=== PATIENT | female | born 1945 | race Two or more races ===

== ENCOUNTER 2020-01-24 16:57 | Inpatient (IN) | payer MEDICARE ==
[~2020-01-24] VITALS: Ht 165.1 cm; Wt 89.0 kg
[2020-01-24 21:00] VITALS: BP 123/62
--- NOTE | 2020-01-24 21:15 | NUR ---
NURSE NOTES: Received patient report from WILBER Kingston. Patient arrived to unit from [facility] at 2100. Patient is AO x4. She shows no signs of distress or pain at the time. Per day shift nurse, patient got swabbed for COVID in [facility] but the results would not be ready until 24 hrs from then. Patient was was put on Contact/ droplet Isolation. Nursing circus train supervisor Ángel advised for patient to get a rapid swab. Patient was placed on athletic monitor. Belongings were noted. No phone and no money on the patient. Everything got sent with her son. Patient is on 2 L nasal canula. Patient is able to ambulate with a steady gait. IV is intact and patent. There are no signs of erythema, infiltration, or bleeding. Bed is in the lowest position, call light is within reach, side rails up x3. Will continue to monitor.
--- NOTE | 2020-01-24 21:50 | NUR ---
NURSE NOTES: Called Dr. Elias for admission orders. asked for patient to be re-swabbed with rapid COVID test. The rest of orders given.
--- NOTE | 2020-01-24 22:15 | NUR ---
NURSE NOTES: Patient came back positive for COVID. Dr. Elias was informed. He asked for patient to be put on Remdesevir. Pharmacy needs to be open so will have to wait until 0700 per Nursing Yield Engineer Ángel.
[2020-01-25] VITALS: BP 123/56
[2020-01-25] MEDS: cefTRIAXone 1 GM in D5W 55 ML IVPB SCH (00:10)
[2020-01-25] MEDS: dexAMETHasone 10mg/ml Inj IV SCH (00:10)
[2020-01-25] MEDS ORDERED: Albuterol 90mcg Inhaler 8gm INH PRN (02:15)
--- NOTE | 2020-01-25 03:25 | NUR ---
NURSE NOTES: Informed Dr. Elias patient had episode of bradycardia of 47 bpm. Patient was asleep, denies any pain or shortness of breath. No new orders given at the moment.
[2020-01-25 04:00] VITALS: BP 126/56
[2020-01-25] MEDS ORDERED: GABAPENTIN100 MG ORAL (06:57)
[2020-01-25] MEDS ORDERED: OMEPRAZOLE40 M1 ORAL (06:57)
[2020-01-25] MEDS ORDERED: AMLODIPINE-ATO1 EAC4 ORAL (06:57)
--- NOTE | 2020-01-25 07:39 | NUR ---
NURSE HAND-OFF REPORT: Important Events on Shift:[Patient was Sinus Erasmo. MD informed. No new orders given] Patient Status: [Full code] Diet: Cardiac[] Pending Orders: [Marielyir. Endorsed to WILBER Khoury to call pharmacy] Pending Results/Labs:[NA] Pending MD notification:[NA] Latest Vital Signs: Temperature 96.6 , Pulse 55 , B/P 126 /56 , Respiratory Rate 20 , O2 SAT 93 , , O2 Flow Rate 2.0 . Vital Sign Comment: [NA] EKG Rhythm: Sinus Bradycardia Rhythm change?: N MD Notified?: - MD Response: Latest Rowe Fall Score: 35 Fall Risk: Medium Risk Safety Measures: Call light Within Reach, Bed Alarm Zone 2, Side Rails Side Rails x2, Bed position Low and Locked. Fall Precautions: Yellow Socks Yellow Gown Patient Fall Education Report given to [WILBER Khoury].
[2020-01-25 08:00] VITALS: BP 125/47
--- NOTE | 2020-01-25 08:00 | NUR ---
NURSE NOTES: Pt awake/alert in bed, breathing easily on 2 lpm n/c, denies SOB and denies pain at this time. Vital signs stable with SR @ 60 on monitor. IV access RW, flushed with 10 ml NS and locked. CBC drawn on pt. Bed left in low position, side rails up x 2 and call light left near pt's hand.
[2020-01-25 08:04] LABS: ALANINE AMINOTRANSFERASE 39 U/L (12-78); ALBUMIN 2.4 G/DL (3.4-5.0); ALBUMIN/GLOBULIN RATIO 0.5 (1.0-2.7); ALKALINE PHOSPHATASE 63 U/L (46-116); ANION GAP 9 mmol/L (5-15); ASPARTATE AMINO TRANSFERASE 20 U/L (15-37); BILIRUBIN,TOTAL 0.3 MG/DL (0.2-1.0); BLOOD UREA NITROGEN 20 mg/dL (7-18); CALCIUM 8.8 MG/DL (8.5-10.1); CARBON DIOXIDE 27 MMOL/L (21-32); CHLORIDE 106 MMOL/L (98-107); CREATININE 0.8 MG/DL (0.55-1.30); PHOSPHORUS 3.1 MG/DL (2.5-4.9); POTASSIUM 4.3 MMOL/L (3.5-5.1); SODIUM 141 MMOL/L (136-145)
[2020-01-25] MEDS: Aspirin Baby 81mg ORAL SCH (09:25)
--- NOTE | 2020-01-25 09:47 | Diagnostic Imaging Report ---
EXAM: XR Chest, 1 View CLINICAL HISTORY: CP TECHNIQUE: Frontal view of the chest. COMPARISON: No relevant prior studies available. FINDINGS/IMPRESSION: Mild, peripheral patchy airspace opacity which should be correlated with CT scan if there is concern for viral pneumonitis. No focal or lobar infiltrate. No pneumothorax. No pleural effusion appeared Normal heart size. Calcified aorta.
[2020-01-25 10:04] LABS: APPEARANCE,URINE SLIGHTLY CLOUDY; BILIRUBIN, URINE NEGATIVE (NEGATIVE); COLOR,URINE PALE YELLOW; GLUCOSE, URINE (UA) NEGATIVE (NEGATIVE); KETONES,URINE NEGATIVE (NEGATIVE); LEUKOCYTE ESTERASE ,URINE 2+ (NEGATIVE); NITRITE,URINE NEGATIVE (NEGATIVE); PH,URINE 6 (4.5-8.0); PROTEIN,URINE NEGATIVE (NEGATIVE); UROBILINOGEN,URINE NORMAL MG/DL (0.0-1.0)
[2020-01-25 10:20] LABS: BASOPHILS % (AUTO) 1.9 % (0.0-2.0); HEMATOCRIT 42.7 % (37.0-47.0); LYMPHOCYTES % (AUTO) 10.7 % (20.0-45.0); MEAN CORPUSCULAR VOLUME 85 FL (80-99); MONOCYTES % (AUTO) 3.4 % (1.0-10.0); PLATELET COUNT 166 K/UL (150-450); RED CELL DISTRIBUTION WIDTH 13.5 % (11.6-14.8); WHITE BLOOD COUNT 8.9 K/UL (4.8-10.8)
--- NOTE | 2020-01-25 11:47 | Consultation ---
History of Present Illness General Date patient seen: Jan 25, 2020 Time patient seen: 10:00 Chief Complaint: SOB Referring physician: Dr Elias Reason for Consultation: COVID infection, pneumonia Present Illness HPI 74 years old female with past medical history of asthma, initially presented to [facility] with 2 weeks of intermittent shortness of breath, subjective fever and mild dry cough. Upon evaluation by her primary care provider she was found to be hypoxic and was advised to go to emergency room for further evaluation. Patient initially presented to [facility] and was found to be hypoxic 80 to 84% on room air; pulse oximetry improved to 94% on 2 L of oxygen via nasal cannula. Laboratory work-up revealed leukocytosis WBC 14.7, lactic acid 1.4 Stable electrolytes. Troponin 0.06, proBNP 15 . ECG -SR. Chest x-ray revealed patchy interstitial infiltrates. Patient was tested for rapid COVID-19, however the result is not available in the paperwork sent to us. Patient received empiric ceftriaxone and azithromycin , albuterol via [facility]I and transferred to [facility] due to insurance reasons. Upon arrival to [place] rapid COVID-19 was done and was positive. Patient admitted to telemetry floor to isolation room. Pulmonary consult was requested to assist in management of this patient. Patient reports shortness of breath, dry cough, occasional chest pain with deep breathing, sore throat, generalized weakness and fatigue. Labs this morning revealed no leukocytosis , stable hemoglobin and hematocrit. Glucose 180. Troponin negative. Stable LFT Allergies: Coded Allergies: No Known Allergies (Unverified , 01/24/20) Medication History Scheduled Amlodipine-Atorvastatin 10-20 Mg (Amlodipine-Atorvastatin 10-20 Mg), 1 TAB ORAL DAILY, (Reported) Gabapentin* (Gabapentin*), 100 MG ORAL THREE TIMES A DAY, (Reported) Omeprazole (Omeprazole), 40 MG ORAL DAILY, (Reported) Patient History History Provided By: Patient, Medical Record Healthcare decision maker Resuscitation status Full code Advanced Directive on File Past Medical/Surgical History Past Medical/Surgical History: (1) Asthma Review of Systems Constitutional: Reports: weakness - fatugye Eye: Reports: no symptoms ENT: Reports: other - sore throat Respiratory: Reports: see HPI, cough, shortness of breath Cardiovascular: Reports: see HPI Gastrointestinal: Reports: no symptoms Genitourinary: Reports: no symptoms Musculoskeletal: Reports: no symptoms Skin: Reports: no symptoms Psychiatric: Reports: no symptoms Neurological: Reports: no symptoms Endocrine: Reports: no symptoms Hematologic/Lymphatic: Reports: no symptoms Physical Exam General Appearance: no apparent distress, other - A/A/O x 4 predominantly Chinese speaking female in NAD Lines, tubes and drains: peripheral HEENT: normocephalic, atraumatic, anicteric, mucous membranes moist, pharynx normal, supple, other - O2 via NC Respiratory/Chest: chest wall non-tender, lungs clear, no accessory muscle use Cardiovascular/Chest: normal peripheral pulses, normal rate Abdomen: normal bowel sounds, non tender, soft Skin Exam: normal pigmentation, warm/dry 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, no motor/sensory deficits, alert, oriented x 3, responsive Musculoskeletal: normal muscle bulk Last 24 Hour Vital Signs Date Time Temp Pulse Resp B/P (MAP) Pulse Ox O2 Delivery O2 Flow Rate FiO2 01/25/20 09:25 66 125/47 01/25/20 08:00 70 01/25/20 08:00 97.9 66 20 125/47 (73) 94 01/25/20 04:00 55 01/25/20 04:00 96.6 60 20 126/56 (79) 93 01/25/20 01:12 Nasal Cannula 2.0 01/25/20 00:00 97.7 62 20 123/56 (78) 93 01/25/20 00:00 59 01/24/20 21:00 97.7 68 20 123/62 (82) 95 01/24/20 20:17 73 Intake and Output 01/24/20 01/25/20 19:00 07:00 Intake Total 600 ml Balance 600 ml Intake Oral 600 ml # Voids 1 Laboratory Tests Test 01/25/20 05:00 01/25/20 08:00 01/25/20 10:00 Sodium Level 141 MMOL/L (136-145) Potassium Level 4.3 MMOL/L (3.5-5.1) Chloride Level 106 MMOL/L (98-107) Carbon Dioxide Level 27 MMOL/L (21-32) Anion Gap 9 mmol/L (5-15) Blood Urea Nitrogen 20 mg/dL (7-18) H Creatinine 0.8 MG/DL (0.55-1.30) Estimat Glomerular Filtration Rate > 60 mL/min (>60) Glucose Level 180 MG/DL (74-106) H Calcium Level 8.8 MG/DL (8.5-10.1) Phosphorus Level 3.1 MG/DL (2.5-4.9) Magnesium Level 2.5 MG/DL (1.8-2.4) H Total Bilirubin 0.3 MG/DL (0.2-1.0) Aspartate Amino Transf (AST/SGOT) 20 U/L (15-37) Alanine Aminotransferase (ALT/SGPT) 39 U/L (12-78) Alkaline Phosphatase 63 U/L (46-116) Troponin I 0.000 ng/mL (0.000-0.056) Pro-B-Type Natriuretic Peptide 51 pg/mL (0-125) Total Protein 7.3 G/DL (6.4-8.2) Albumin 2.4 G/DL (3.4-5.0) L Globulin 4.9 g/dL Albumin/Globulin Ratio 0.5 (1.0-2.7) L Urine Color Pale yellow Urine Appearance Slightly cloudy Urine pH 6 (4.5-8.0) Urine Specific Valentine 1.020 (1.005-1.035) Urine Protein Negative (NEGATIVE) Urine Glucose (UA) Negative (NEGATIVE) Urine Ketones Negative (NEGATIVE) Urine Blood Negative (NEGATIVE) Urine Nitrite Negative (NEGATIVE) Urine Bilirubin Negative (NEGATIVE) Urine Urobilinogen Normal MG/DL (0.0-1.0) Urine Leukocyte Esterase 2+ (NEGATIVE) H Urine RBC 0-2 /HPF (0 - 2) Urine WBC 40-60 /HPF (0 - 2) H Urine Squamous Epithelial Cells Few /LPF (NONE/OCC) Urine Bacteria Few /HPF (NONE) White Blood Count 8.9 K/UL (4.8-10.8) Red Blood Count 5.00 M/UL (4.20-5.40) Hemoglobin 14.0 G/DL (12.0-16.0) Hematocrit 42.7 % (37.0-47.0) Mean Corpuscular Volume 85 FL (80-99) Mean Corpuscular Hemoglobin 28.0 PG (27.0-31.0) Mean Corpuscular Hemoglobin Concent 32.7 G/DL (32.0-36.0) Red Cell Distribution Width 13.5 % (11.6-14.8) Platelet Count 166 K/UL (150-450) Mean Platelet Volume 5.4 FL (6.5-10.1) L Neutrophils (%) (Auto) 84.0 % (45.0-75.0) H Lymphocytes (%) (Auto) 10.7 % (20.0-45.0) L Monocytes (%) (Auto) 3.4 % (1.0-10.0) Eosinophils (%) (Auto) 0.0 % (0.0-3.0) Basophils (%) (Auto) 1.9 % (0.0-2.0) Microbiology Date/Time Source Procedure Growth Status 01/24/20 22:00 Nasopharynx SARS-CoV-2 RdRp Gene Assay - Final Complete Height (Feet): 5 Height (Inches): 5.00 Weight (Pounds): 189 Medications Current Medications Medications (Trade) Dose Ordered Sig/Jaime Route PRN Reason Start Time Stop Time Status Last Admin Dose Admin Acetaminophen (Tylenol) 650 mg Q6H PRN ORAL For Headache 01/24/20 21:45 02/23/20 21:44 Albuterol Sulfate (Proventil MDI) 2 puff Q4H PRN INH Shortness of Breath 01/25/20 02:15 04/24/20 02:14 Amlodipine Besylate (Norvasc) 10 mg DAILY ORAL 01/25/20 09:00 02/24/20 08:59 01/25/20 09:25 Aspirin (ASA) 81 mg DAILY ORAL 01/25/20 09:00 03/10/20 08:59 01/25/20 09:25 Ceftriaxone Sodium 1 gm/ Dextrose 55 ml @ 110 mls/hr Q24H IVPB 01/25/20 00:00 02/01/20 00:00 01/25/20 00:10 Dexamethasone Sodium Phosphate (Decadron 10mg/ ml Inj) 6 mg Q24H IV 01/25/20 00:00 04/24/20 00:00 01/25/20 00:10 Heparin Sodium (Porcine) (Heparin 5000 units/ml) 5,000 units EVERY 8 HOURS SUBQ 01/25/20 14:00 03/10/20 13:59 Ondansetron HCl (Zofran) 4 mg Q4H PRN IVP Nausea & Vomiting 01/24/20 21:45 02/23/20 21:44 Pantoprazole (Protonix) 40 mg DAILY ORAL 01/25/20 09:00 02/24/20 08:59 01/25/20 09:25 Assessment/Plan Assessment/Plan: ASSESSMENT Acute hypoxemic respiratory failure- due to COVID infection COVID 19 PNA Asthma Hyperglycemia PLAN OF CARE tele isolation O2 titrate to keep sat above 92% Albuterol MDI IV steroids empiric antibiotics ceftriaxone and azithromycin f/up with CXR consider Remdesivir per ID check inflammatory markers to assess risk for cytokine storm DVT prophylaxis add vitamin C and zinc check HgbA1c ; may need SSI while on the steroids GI prophylaxis supportive care case discussed and evaluated by supervising physician Pepper Renner NP Jan 25, 2020 11:47
[2020-01-25 12:00] VITALS: BP 137/59
--- NOTE | 2020-01-25 12:54 | Infectious Diseases Prog Note ---
Subjective Allergies: Coded Allergies: No Known Allergies (Unverified , 01/24/20) Discussed w the pt : RDV is apoproved under EUA RIsk and benefits explained and she will be monitored for possible side effects pt agrees to the treatment plan DW pharm to start the Rx Objective Last 24 Hour Vital Signs Date Time Temp Pulse Resp B/P (MAP) Pulse Ox O2 Delivery O2 Flow Rate FiO2 01/25/20 09:25 66 125/47 01/25/20 08:00 70 01/25/20 08:00 97.9 66 20 125/47 (73) 94 01/25/20 04:00 55 01/25/20 04:00 96.6 60 20 126/56 (79) 93 01/25/20 01:12 Nasal Cannula 2.0 01/25/20 00:00 97.7 62 20 123/56 (78) 93 01/25/20 00:00 59 01/24/20 21:00 97.7 68 20 123/62 (82) 95 01/24/20 20:17 73 Height (Feet): 5 Height (Inches): 5.00 Weight (Pounds): 189 Microbiology Date/Time Source Procedure Growth Status 01/24/20 22:00 Nasopharynx SARS-CoV-2 RdRp Gene Assay - Final Complete Laboratory Tests Test 01/25/20 05:00 01/25/20 08:00 01/25/20 10:00 Sodium Level 141 MMOL/L (136-145) Potassium Level 4.3 MMOL/L (3.5-5.1) Chloride Level 106 MMOL/L (98-107) Carbon Dioxide Level 27 MMOL/L (21-32) Anion Gap 9 mmol/L (5-15) Blood Urea Nitrogen 20 mg/dL (7-18) H Creatinine 0.8 MG/DL (0.55-1.30) Estimat Glomerular Filtration Rate > 60 mL/min (>60) Glucose Level 180 MG/DL (74-106) H Calcium Level 8.8 MG/DL (8.5-10.1) Phosphorus Level 3.1 MG/DL (2.5-4.9) Magnesium Level 2.5 MG/DL (1.8-2.4) H Total Bilirubin 0.3 MG/DL (0.2-1.0) Aspartate Amino Transf (AST/SGOT) 20 U/L (15-37) Alanine Aminotransferase (ALT/SGPT) 39 U/L (12-78) Alkaline Phosphatase 63 U/L (46-116) Troponin I 0.000 ng/mL (0.000-0.056) Pro-B-Type Natriuretic Peptide 51 pg/mL (0-125) Total Protein 7.3 G/DL (6.4-8.2) Albumin 2.4 G/DL (3.4-5.0) L Globulin 4.9 g/dL Albumin/Globulin Ratio 0.5 (1.0-2.7) L Urine Color Pale yellow Urine Appearance Slightly cloudy Urine pH 6 (4.5-8.0) Urine Specific [place] 1.020 (1.005-1.035) Urine Protein Negative (NEGATIVE) Urine Glucose (UA) Negative (NEGATIVE) Urine Ketones Negative (NEGATIVE) Urine Blood Negative (NEGATIVE) Urine Nitrite Negative (NEGATIVE) Urine Bilirubin Negative (NEGATIVE) Urine Urobilinogen Normal MG/DL (0.0-1.0) Urine Leukocyte Esterase 2+ (NEGATIVE) H Urine RBC 0-2 /HPF (0 - 2) Urine WBC 40-60 /HPF (0 - 2) H Urine Squamous Epithelial Cells Few /LPF (NONE/OCC) Urine Bacteria Few /HPF (NONE) White Blood Count 8.9 K/UL (4.8-10.8) Red Blood Count 5.00 M/UL (4.20-5.40) Hemoglobin 14.0 G/DL (12.0-16.0) Hematocrit 42.7 % (37.0-47.0) Mean Corpuscular Volume 85 FL (80-99) Mean Corpuscular Hemoglobin 28.0 PG (27.0-31.0) Mean Corpuscular Hemoglobin Concent 32.7 G/DL (32.0-36.0) Red Cell Distribution Width 13.5 % (11.6-14.8) Platelet Count 166 K/UL (150-450) Mean Platelet Volume 5.4 FL (6.5-10.1) L Neutrophils (%) (Auto) 84.0 % (45.0-75.0) H Lymphocytes (%) (Auto) 10.7 % (20.0-45.0) L Monocytes (%) (Auto) 3.4 % (1.0-10.0) Eosinophils (%) (Auto) 0.0 % (0.0-3.0) Basophils (%) (Auto) 1.9 % (0.0-2.0) Current Medications Medications (Trade) Dose Ordered Sig/Jaime Route PRN Reason Start Time Stop Time Status Last Admin Dose Admin Acetaminophen (Tylenol) 650 mg Q6H PRN ORAL For Headache 01/24/20 21:45 02/23/20 21:44 Albuterol Sulfate (Proventil MDI) 2 puff Q4H PRN INH Shortness of Breath 01/25/20 02:15 04/24/20 02:14 Amlodipine Besylate (Norvasc) 10 mg DAILY ORAL 01/25/20 09:00 02/24/20 08:59 01/25/20 09:25 Ascorbic Acid (Vitamin C) 500 mg TWICE A DAY ORAL 01/25/20 18:00 02/24/20 17:59 Aspirin (ASA) 81 mg DAILY ORAL 01/25/20 09:00 03/10/20 08:59 01/25/20 09:25 Azithromycin 500 mg/Dextrose 275 ml @ 275 mls/hr Q24HRS IV 01/25/20 14:00 01/31/20 14:59 Ceftriaxone Sodium 1 gm/ Dextrose 55 ml @ 110 mls/hr Q24H IVPB 01/25/20 00:00 02/01/20 00:00 01/25/20 00:10 Dexamethasone Sodium Phosphate (Decadron 10mg/ ml Inj) 6 mg Q24H IV 01/25/20 00:00 04/24/20 00:00 01/25/20 00:10 Heparin Sodium (Porcine) (Heparin 5000 units/ml) 5,000 units EVERY 8 HOURS SUBQ 01/25/20 14:00 03/10/20 13:59 Pantoprazole (Protonix) 40 mg DAILY ORAL 01/25/20 09:00 02/24/20 08:59 01/25/20 09:25 Zinc Sulfate (Zinc Sulfate) 220 mg DAILY ORAL 01/26/20 09:00 04/25/20 08:59 Zinc Sulfate (Zinc Sulfate) 220 mg ONCE ORAL 01/25/20 14:00 01/25/20 15:00 Guillermo Lau MD Jan 25, 2020 12:54
[2020-01-25] MEDS ORDERED: Zinc Sulfate 220mg ORAL SCH (14:00)
[2020-01-25] MEDS: Azithromycin 500 MG in D5W 275 ML IV SCH (14:16)
[2020-01-25] MEDS: Heparin 5000 units/ml inj SUBQ SCH ×2 (14:17→21:21)
[2020-01-25 16:00] VITALS: BP 135/39
--- NOTE | 2020-01-25 16:43 | History & Physical ---
History and Physical History & Physicial Dictated for Int Med-DR Elias no. [id number]. Carlos Eduardo Storey MD Jan 25, 2020 16:43
--- NOTE | 2020-01-25 17:03 | NUR ---
CASE MANAGEMENT: INITIAL REVIEW 74YR OLD FEMALE BIBA TRANSFER FROM [place] CC:SOB SAT AT <89% ; FEVER COUGH; R/O COVID PMH: ASTHMA SI:HYPOXIA COVID-19 + PNA 97.7 73 20 123/62 95% ON 2L NC BUN 20 MG 2.5 IS:IV ROCEPHIN QD IV DECADRON QD IV ZITHROMAX QD HEPARIN SQ TID NORVASC PO QD PROTONIX PO QD ASA PO QD \: 3E MED SURG UNIT DCP: HOME WHEN STABLE PLAN: KEEP SAT ABOVE 92% CORRECT MG LEVEL ID CONSULT OXYGEN THERAPY
[2020-01-25] MEDS: Ascorbic Acid 500mg tab ORAL SCH (17:45)
[2020-01-25 20:00] VITALS: BP 141/62
--- NOTE | 2020-01-25 20:00 | NUR ---
NURSE NOTES: Received patient report from WILBER Khoury. Patient shows no signs of distress or pain at the time. Patient is AO x4. She states she is feeling better than yesterday. Patient is on 2L nasal canula saturating at 93%. She reports no respiratory distress. IV is intact and patent. There are no signs of erythema, infiltration, or bleeding at the time. Per air sampling and monitoring Afshin, patient was having PVC s on color television console monitor. I notified Dr. Elias and he ordered Mg, Phos in the morning. Will continue to monitor.
--- NOTE | 2020-01-25 23:59 | History and Physical Report ---
DATE OF ADMISSION: 01/24/2020 CHIEF COMPLAINT: Patient is a 74-year-old female, who presents with a chief complaint of shortness of breath. HISTORY OF PRESENT ILLNESS: Began two weeks prior to admission. Patient began to experience decreased taste and sense of smell. Patient then began to experience subjective fevers and chills. Patient then became short of breath. Patient initially presented to [facility] emergency room. Patient is transferred to [facility] for insurance purposes. Patient is admitted with shortness of breath to rule out COVID-19 pneumonia. REVIEW OF SYSTEMS: CONSTITUTIONAL: Patient denies weight loss or weight gain. Patient complains of subjective fevers and chills as above. HEENT: Patient complains of congestion. Patient denies throat pain or ear pain. CARDIOVASCULAR: Patient denies palpitations or chest pain. CHEST: Patient complains of shortness of breath as above. Patient complains of nonproductive cough. Patient denies wheezes. ABDOMEN: Patient denies nausea, vomiting, diarrhea, or constipation. GENITOURINARY: Patient denies dysuria or increased frequency of urination. NEUROMUSCULAR: Patient complains of loss of taste and smell sensation as above. PAST MEDICAL HISTORY: Significant for: 1. Asthma. 2. Hypertension. 3. Gastritis. 4. Arthritis. PAST SURGICAL HISTORY: Significant for cholecystectomy. CURRENT MEDICATIONS: 1. Amlodipine 10 mg 1 tablet p.o. daily. 2. Benazepril 20 mg p.o. daily. 3. Prilosec 20 mg p.o. daily. ALLERGIES: No known drug allergies. SOCIAL HISTORY: Patient is single and lives with her family. Patient denies tobacco or alcohol use. PHYSICAL EXAMINATION: VITAL SIGNS: Temperature 97.7, respirations 20, pulse 58, blood pressure 123/62. GENERAL: Patient is well-developed, well-nourished female, in no apparent distress. HEENT: Eyes, pupils are equal and responsive to light and accommodation. Extraocular movements are intact. NECK: Supple without lymphadenopathy. CHEST: Crackles heard in the bilateral bases. Otherwise, without wheezes. CARDIOVASCULAR: Regular rhythm and rate. S1, S2 normal without murmurs, rubs, or gallops. ABDOMEN: Soft, nontender, nondistended. Positive bowel sounds. No evidence of hepatosplenomegaly. Currently, no rebound or guarding noted. EXTREMITIES: Negative for clubbing, cyanosis, or edema. RECTAL/GENITAL: Not performed. NEUROLOGIC: Cranial nerves II through XII are grossly intact without focal deficits. Motor strength is 5/5 bilaterally. Deep tendon reflexes are 2+ plantar. Chest x-ray from [place] demonstrated bilateral interstitial infiltrates consistent with COVID-19 pneumonia. LABORATORY STUDIES: WBC 14.7, hemoglobin 14.8, hematocrit 45.6, platelets 192,000. Sodium 138, potassium 4.1, chloride 102, CO2 23, BUN 22, creatinine 0.96, glucose 180. COVID-19 rapid test at [place] was reported as positive. ASSESSMENT: This is a 74-year-old female. 1. COVID-19 positive. 2. Bilateral pneumonia. 3. Shortness of breath. 4. Hypoxia. 5. Asthma. 6. Hypertension. 7. Gastritis. 8. Arthritis. TREATMENT: 1. COVID-19 pneumonia. An Infectious Disease consultation has been obtained with Dr. Lau. Patient has been started on remdesivir. Patient has also been receiving albuterol nebulized q.4h. A Pulmonary consultation has been obtained with Dr. Saqib Obando. Follow recommendations of Infectious Disease and Pulmonary. 2. Hypertension. Continue amlodipine and benazepril as above. 3. Gastritis. Continue omeprazole as above. 4. Arthritis. Carlos Eduardo Storey M.D. DR: YAEL JOB#: [id number] CC:
[2020-01-26] VITALS: BP 141/68
[2020-01-26] MEDS: cefTRIAXone 1 GM in D5W 55 ML IVPB SCH ×2 (00:27→23:56)
[2020-01-26] MEDS: dexAMETHasone 10mg/ml Inj IV SCH ×2 (00:27→23:55)
[2020-01-26 04:00] VITALS: BP 133/54
[2020-01-26] MEDS: Heparin 5000 units/ml inj SUBQ SCH ×3 (05:48→21:57)
[2020-01-26 06:42] LABS: HEMATOCRIT 42.3 % (37.0-47.0); HEMOGLOBIN 13.7 G/DL (12.0-16.0); MEAN CORPUSCULAR VOLUME 86 FL (80-99); PLATELET COUNT 191 K/UL (150-450); RED BLOOD COUNT 4.94 M/UL (4.20-5.40); RED CELL DISTRIBUTION WIDTH 13.5 % (11.6-14.8); WHITE BLOOD COUNT 13.3 K/UL (4.8-10.8)
[2020-01-26 07:01] LABS: ANION GAP 10 mmol/L (5-15); BLOOD UREA NITROGEN 22 mg/dL (7-18); CALCIUM 8.6 MG/DL (8.5-10.1); CARBON DIOXIDE 24 MMOL/L (21-32); CHLORIDE 105 MMOL/L (98-107); CREATININE 0.9 MG/DL (0.55-1.30); POTASSIUM 4.2 MMOL/L (3.5-5.1); SODIUM 139 MMOL/L (136-145)
--- NOTE | 2020-01-26 07:22 | NUR ---
NURSE HAND-OFF REPORT: Important Events on Shift:[NA] Patient Status: [Full code] Diet: [Cardiac] Pending Orders: [Remdesevir] Pending Results/Labs:[NA] Pending MD notification:[NA] Latest Vital Signs: Temperature 97.0 , Pulse 48 , B/P 133 /54 , Respiratory Rate 20 , O2 SAT 93 , Nasal Cannula, O2 Flow Rate 2.0 . Vital Sign Comment: [NA] EKG Rhythm: Sinus Bradycardia Rhythm change?: N MD Notified?: - MD Response: Latest Rowe Fall Score: 35 Fall Risk: Medium Risk Safety Measures: Call light Within Reach, Bed Alarm Zone 2, Side Rails Side Rails x2, Bed position Low and Locked. Fall Precautions: Yellow Socks Yellow Gown Patient Fall Education Report given to [WILBER Champion].
--- NOTE | 2020-01-26 07:26 | NUR ---
NURSE NOTES: Received pt in bed, sleeping. On 2L/min. No s/s of distress/pain. IV on R wrist 20g noted, with SL. Side rails x 2. Bed in the lowest and locked. Call light within reach. Will continue to monitor
[2020-01-26 07:49] LABS: PHOSPHORUS 3.3 MG/DL (2.5-4.9)
[2020-01-26 08:00] VITALS: BP 138/57
[2020-01-26] MEDS: Ascorbic Acid 500mg tab ORAL SCH ×2 (08:32→16:55)
[2020-01-26] MEDS: Aspirin Baby 81mg ORAL SCH (08:32)
[2020-01-26] MEDS: Zinc Sulfate 220mg ORAL SCH (08:32)
--- NOTE | 2020-01-26 09:49 | NUR ---
NURSE NOTES: Notified dr. Storey for D-dimer 3.44 and awaiting for orders
--- NOTE | 2020-01-26 11:56 | Pulmonology Progress Note ---
Subjective ROS Limited/Unobtainable: No Interval Events: feeling better Allergies: Coded Allergies: No Known Allergies (Unverified , 01/24/20) Objective Last 24 Hour Vital Signs Date Time Temp Pulse Resp B/P (MAP) Pulse Ox O2 Delivery O2 Flow Rate FiO2 01/26/20 08:32 48 138/57 01/26/20 08:05 Nasal Cannula 2.0 01/26/20 08:00 97.2 59 18 138/57 (84) 94 01/26/20 08:00 48 01/26/20 04:00 97.0 60 20 133/54 (80) 93 01/26/20 04:00 48 01/26/20 00:00 47 01/26/20 00:00 97.5 54 20 141/68 (92) 93 01/25/20 21:00 Nasal Cannula 2.0 01/25/20 20:00 61 01/25/20 20:00 97.0 68 18 141/62 (88) 93 01/25/20 16:00 84 01/25/20 16:00 97.9 71 20 135/39 (71) 94 01/25/20 15:07 Nasal Cannula 2.0 01/25/20 12:00 62 01/25/20 12:00 97.5 63 20 137/59 (85) 95 Intake and Output 01/25/20 01/26/20 19:00 07:00 Intake Total 600 ml 530 ml Balance 600 ml 530 ml Intake Oral 600 ml 530 ml # Voids 5 2 General Appearance: WD/WN HEENT: normocephalic, atraumatic Respiratory: chest wall non-tender, lungs clear Cardiovascular: normal rate Abdomen: normal bowel sounds, soft, non tender, non distended Genitourinary: normal external genitalia Skin: no rash, no ulcers Neurologic: surveillance operator II-XII grossly normal Lymphatic: no neck adenopathy Microbiology Date/Time Source Procedure Growth Status 01/24/20 22:00 Nasopharynx SARS-CoV-2 RdRp Gene Assay - Final Complete 01/25/20 08:00 Urine,Clean Catch Urine Culture - Preliminary NO GROWTH Resulted Laboratory Tests 01/26/20 04:00: White Blood Count 13.3H, Red Blood Count 4.94, Hemoglobin 13.7, Hematocrit 42.3 , Mean Corpuscular Volume 86, Mean Corpuscular Hemoglobin 27.8, Mean Corpuscular Hemoglobin Concent 32.5, Red Cell Distribution Width 13.5, Platelet Count 191, Mean Platelet Volume 5.3L, Neutrophils (%) (Auto) , Lymphocytes (%) ( Auto) , Monocytes (%) (Auto) , Eosinophils (%) (Auto) , Basophils (%) (Auto) , Differential Total Cells Counted 100, Neutrophils % (Manual) 90H, Lymphocytes % (Manual) 9L, Monocytes % (Manual) 1, Eosinophils % (Manual) 0, Basophils % ( Manual) 0, Band Neutrophils 0, Platelet Estimate Adequate, Platelet Morphology Normal, Red Blood Cell Morphology Normal, D-Dimer 3.44H, Sodium Level 139, Potassium Level 4.2, Chloride Level 105, Carbon Dioxide Level 24, Anion Gap 10, Blood Urea Nitrogen 22H, Creatinine 0.9, Estimat Glomerular Filtration Rate > 60 , Glucose Level 198H, Calcium Level 8.6, Phosphorus Level 3.3, Magnesium Level 2.3, Ferritin 248, Lactate Dehydrogenase 290H, C-Reactive Protein, Quantitative 3.0H Current Medications Medications (Trade) Dose Ordered Sig/Jaime Route PRN Reason Start Time Stop Time Status Last Admin Dose Admin Acetaminophen (Tylenol) 650 mg Q6H PRN ORAL For Headache 01/24/20 21:45 02/23/20 21:44 Albuterol Sulfate (Proventil MDI) 2 puff Q4H PRN INH Shortness of Breath 01/25/20 02:15 04/24/20 02:14 Amlodipine Besylate (Norvasc) 10 mg DAILY ORAL 01/25/20 09:00 02/24/20 08:59 01/26/20 08:32 Ascorbic Acid (Vitamin C) 500 mg TWICE A DAY ORAL 01/25/20 18:00 02/24/20 17:59 01/26/20 08:32 Aspirin (ASA) 81 mg DAILY ORAL 01/25/20 09:00 03/10/20 08:59 01/26/20 08:32 Azithromycin 500 mg/Dextrose 275 ml @ 275 mls/hr Q24HRS IV 01/25/20 14:00 01/31/20 14:59 01/25/20 14:16 Ceftriaxone Sodium 1 gm/ Dextrose 55 ml @ 110 mls/hr Q24H IVPB 01/25/20 00:00 02/01/20 00:00 01/26/20 00:27 Dexamethasone Sodium Phosphate (Decadron 10mg/ ml Inj) 6 mg Q24H IV 01/27/20 00:00 02/03/20 00:01 Heparin Sodium (Porcine) (Heparin 5000 units/ml) 5,000 units EVERY 8 HOURS SUBQ 01/25/20 14:00 03/10/20 13:59 01/26/20 05:48 Pantoprazole (Protonix) 40 mg DAILY ORAL 01/25/20 09:00 02/24/20 08:59 01/26/20 08:32 Zinc Sulfate (Zinc Sulfate) 220 mg DAILY ORAL 01/26/20 09:00 04/25/20 08:59 01/26/20 08:32 Assessment/Plan Problems: (1) History of asthma (2) 2019 novel coronavirus disease (COVID-19) (3) Acute bronchitis Assessment/Plan check sputum respiratory treatment titrate fio2 to sat of 92% f/u ID recommendations dvt prophylaxis Saqib Obando MD Jan 26, 2020 11:56
[2020-01-26 12:00] VITALS: BP 136/65
[2020-01-26] MEDS: Azithromycin 500 MG in D5W 275 ML IV SCH (13:02)
--- NOTE | 2020-01-26 15:37 | NUR ---
CASE MANAGEMENT: 01/26/20 SEE INTERQUAL...CRITERIA MET
--- NOTE | 2020-01-26 15:37 | NUR ---
INSURANCE CONTACT INFORMATION NOT YET IN B/AR WILL FAX ONCE INFO IS AVAILABLE
[2020-01-26 16:00] VITALS: BP 139/63
--- NOTE | 2020-01-26 16:52 | Consultation ---
History of Present Illness General Date patient seen: Jan 26, 2020 Referring physician: Dr Elias Reason for Consultation: COVID infection, pneumonia Present Illness HPI 74 y/o F with hx of Asthma, HTN, gastritis, sp cholecystectomy, arthritis was transferred from [place] to [facility] on 01/24/20 with 2 weeks of SOB, subjective fever , generalized weakness, decreased sense of taste and sense, fatigue, sore throat , pleuritic chest pain and mild dry cough; patient was hypoxic to 80-84% at RA at [facility] and improved to 945 at [facility]. Upon admission, Wbc 14.7 and lactic acid 1.4. rapid COVID PCR +. Denied n/v/d, dysuria. Allergies: Coded Allergies: No Known Allergies (Unverified , 01/24/20) Medication History Scheduled Amlodipine-Atorvastatin 10-20 Mg (Amlodipine-Atorvastatin 10-20 Mg), 1 TAB ORAL DAILY, (Reported) Gabapentin* (Gabapentin*), 100 MG ORAL THREE TIMES A DAY, (Reported) Omeprazole (Omeprazole), 40 MG ORAL DAILY, (Reported) Patient History Healthcare decision maker Resuscitation status Advanced Directive on File Patient History Narrative Pmhx: as above Shx: Patient is single and lives with her family. Patient denies tobacco or alcohol use. Fhx: non contributory Review of Systems All Other Systems: negative except mentioned in HPI Physical Exam Physical Exam Narrative GENERAL: Patient is well-developed, well-nourished female, in no apparent distress. HEENT: Eyes, pupils are equal and responsive to light and accommodation. Extraocular movements are intact. NECK: Supple without lymphadenopathy. CHEST: Crackles heard in the bilateral bases. Otherwise, without wheezes. CARDIOVASCULAR: Regular rhythm and rate. S1, S2 normal without murmurs, rubs, or gallops. ABDOMEN: Soft, nontender, nondistended. Positive bowel sounds. No evidence of hepatosplenomegaly. Currently, no rebound or guarding noted. EXTREMITIES: Negative for clubbing, cyanosis, or edema. Last 24 Hour Vital Signs Date Time Temp Pulse Resp B/P (MAP) Pulse Ox O2 Delivery O2 Flow Rate FiO2 01/26/20 12:00 97.0 65 20 136/65 (88) 96 01/26/20 12:00 58 01/26/20 08:32 48 138/57 01/26/20 08:05 Nasal Cannula 2.0 01/26/20 08:00 97.2 59 18 138/57 (84) 94 01/26/20 08:00 48 01/26/20 04:00 97.0 60 20 133/54 (80) 93 01/26/20 04:00 48 01/26/20 00:00 47 01/26/20 00:00 97.5 54 20 141/68 (92) 93 01/25/20 21:00 Nasal Cannula 2.0 01/25/20 20:00 61 01/25/20 20:00 97.0 68 18 141/62 (88) 93 Intake and Output 01/25/20 01/26/20 19:00 07:00 Intake Total 600 ml 530 ml Balance 600 ml 530 ml Intake Oral 600 ml 530 ml # Voids 5 2 Laboratory Tests Test 01/26/20 04:00 White Blood Count 13.3 K/UL (4.8-10.8) H Red Blood Count 4.94 M/UL (4.20-5.40) Hemoglobin 13.7 G/DL (12.0-16.0) Hematocrit 42.3 % (37.0-47.0) Mean Corpuscular Volume 86 FL (80-99) Mean Corpuscular Hemoglobin 27.8 PG (27.0-31.0) Mean Corpuscular Hemoglobin Concent 32.5 G/DL (32.0-36.0) Red Cell Distribution Width 13.5 % (11.6-14.8) Platelet Count 191 K/UL (150-450) Mean Platelet Volume 5.3 FL (6.5-10.1) L Neutrophils (%) (Auto) % (45.0-75.0) Lymphocytes (%) (Auto) % (20.0-45.0) Monocytes (%) (Auto) % (1.0-10.0) Eosinophils (%) (Auto) % (0.0-3.0) Basophils (%) (Auto) % (0.0-2.0) Differential Total Cells Counted 100 Neutrophils % (Manual) 90 % (45-75) H Lymphocytes % (Manual) 9 % (20-45) L Monocytes % (Manual) 1 % (1-10) Eosinophils % (Manual) 0 % (0-3) Basophils % (Manual) 0 % (0-2) Band Neutrophils 0 % (0-8) Platelet Estimate Adequate Platelet Morphology Normal Red Blood Cell Morphology Normal D-Dimer 3.44 mg/L FEU (0.00-0.49) H Sodium Level 139 MMOL/L (136-145) Potassium Level 4.2 MMOL/L (3.5-5.1) Chloride Level 105 MMOL/L (98-107) Carbon Dioxide Level 24 MMOL/L (21-32) Anion Gap 10 mmol/L (5-15) Blood Urea Nitrogen 22 mg/dL (7-18) H Creatinine 0.9 MG/DL (0.55-1.30) Estimat Glomerular Filtration Rate > 60 mL/min (>60) Glucose Level 198 MG/DL (74-106) H Calcium Level 8.6 MG/DL (8.5-10.1) Phosphorus Level 3.3 MG/DL (2.5-4.9) Magnesium Level 2.3 MG/DL (1.8-2.4) Ferritin 248 NG/ML (8-388) Lactate Dehydrogenase 290 U/L (81-234) H C-Reactive Protein, Quantitative 3.0 mg/dL (0.00-0.90) H Height (Feet): 5 Height (Inches): 5.00 Weight (Pounds): 186 Medications Current Medications Medications (Trade) Dose Ordered Sig/Jaime Route PRN Reason Start Time Stop Time Status Last Admin Dose Admin Acetaminophen (Tylenol) 650 mg Q6H PRN ORAL For Headache 01/24/20 21:45 02/23/20 21:44 Albuterol Sulfate (Proventil MDI) 2 puff Q4H PRN INH Shortness of Breath 01/25/20 02:15 04/24/20 02:14 Amlodipine Besylate (Norvasc) 10 mg DAILY ORAL 01/25/20 09:00 02/24/20 08:59 01/26/20 08:32 Ascorbic Acid (Vitamin C) 500 mg TWICE A DAY ORAL 01/25/20 18:00 02/24/20 17:59 01/26/20 08:32 Aspirin (ASA) 81 mg DAILY ORAL 01/25/20 09:00 03/10/20 08:59 01/26/20 08:32 Azithromycin 500 mg/Dextrose 275 ml @ 275 mls/hr Q24HRS IV 01/25/20 14:00 01/31/20 14:59 01/26/20 13:02 Ceftriaxone Sodium 1 gm/ Dextrose 55 ml @ 110 mls/hr Q24H IVPB 01/25/20 00:00 02/01/20 00:00 01/26/20 00:27 Dexamethasone Sodium Phosphate (Decadron 10mg/ ml Inj) 6 mg Q24H IV 01/27/20 00:00 02/03/20 00:01 Heparin Sodium (Porcine) (Heparin 5000 units/ml) 5,000 units EVERY 8 HOURS SUBQ 01/25/20 14:00 03/10/20 13:59 01/26/20 13:03 Pantoprazole (Protonix) 40 mg DAILY ORAL 01/25/20 09:00 02/24/20 08:59 01/26/20 08:32 Zinc Sulfate (Zinc Sulfate) 220 mg DAILY ORAL 01/26/20 09:00 04/25/20 08:59 01/26/20 08:32 Assessment/Plan Assessment/Plan: Abx: Ceftriaxone 01/24- Azithromycin 01/24- Assessment: COVID19 Pneumonia Acute hypoxic resp failure- on 2l NC -01/25 LDH 290, ferritin 248m CRP 3.0, D-dimer 3.34 -01/24 CXR: Mild, peripheral patchy airspace opacity which should be correlated with CT scan if there is concern for viral pneumonitis.No focal or lobar infiltrate. No pneumothorax. No pleural effusion appeared -01/23 rapid COVID PCR + Afebrile Leukocytosis (on steroids) -u/a wbc 40-60, nit neg, leuk +2; ucx NTD Asthma HTN gastritis sp cholecystectomy arthritis Plan: -Continue Ceftriaxone and Azithromycin #2 -Decadron #2 -Requested remdesevir- however was denied by [facility] COVID task force committee per current protocol -f/u cx -Monitor CBC/CMP, temperatures -COVID19 isolation Thank you for this consultation. Will continue to follow along with you. Discussed with Nevaeh Goldman M.D. Jan 26, 2020 16:52
--- NOTE | 2020-01-26 19:04 | NUR ---
NURSE HAND-OFF REPORT: Important Events on Shift: n/a Patient Status: n/a Diet: Cardiac Pending Orders: n/a Pending Results/Labs: n/a Pending MD notification: n/a Latest Vital Signs: Temperature 97.7 , Pulse 67 , B/P 139 /63 , Respiratory Rate 18 , O2 SAT 95 , Nasal Cannula, O2 Flow Rate 2.0 . Vital Sign Comment: HR goes down to 48 when patient is sleeping EKG Rhythm: Sinus Rhythm Rhythm change?: N MD Notified?: - MD Response: Latest Rowe Fall Score: 35 Fall Risk: Medium Risk Safety Measures: Call light Within Reach, Bed Alarm Zone 2, Side Rails Side Rails x2, Bed position Low and Locked. Fall Precautions: Yellow Socks Yellow Gown Patient Fall Education Report given to WILBER De Oliveira.
--- NOTE | 2020-01-26 19:05 | NUR ---
NURSE NOTES: RECEIVED REPORT FROM WILBER MOTT. AAOX4, VERBALLY RESPONSIVE IN [place]DONES[place], ABLE TO MAKE NEEDS KNOWN. NO COMPLAINTS OF PAIN OR DISCOMFORT AT THIS TIME. BREATHING EVEN AND UNLABORED ON 2LPM VIA NC, NO S/SX OF DISTRESS NOTED. IV SITE ON RIGHT WRIST PATENT, INTACT, ASYMPTOMATIC, SALINE-LOCKED. FALL PRECAUTIONS IN PLACE. CONTACT AND DROPLET PRECAUTIONS IMPLEMENTED. BED LOCKED AND IN LOWEST POSITION, SIDERAILS UP X 2. CALL LIGHT WITHIN REACH, WILL CONTINUE TO MONITOR FOR ANY CHANGES.
--- NOTE | 2020-01-26 19:20 | Internal Med Progress Note ---
Subjective Date of Service: Jan 26, 2020 Physician Name Carlos Eduardo Storey Attending Physician Leroy Elias MD Current Medications Medications (Trade) Dose Ordered Sig/Jaime Route PRN Reason Start Time Stop Time Status Last Admin Dose Admin Acetaminophen (Tylenol) 650 mg Q6H PRN ORAL For Headache 01/24/20 21:45 02/23/20 21:44 Albuterol Sulfate (Proventil MDI) 2 puff Q4H PRN INH Shortness of Breath 01/25/20 02:15 04/24/20 02:14 Amlodipine Besylate (Norvasc) 10 mg DAILY ORAL 01/25/20 09:00 02/24/20 08:59 01/26/20 08:32 Ascorbic Acid (Vitamin C) 500 mg TWICE A DAY ORAL 01/25/20 18:00 02/24/20 17:59 01/26/20 16:55 Aspirin (ASA) 81 mg DAILY ORAL 01/25/20 09:00 03/10/20 08:59 01/26/20 08:32 Azithromycin 500 mg/Dextrose 275 ml @ 275 mls/hr Q24HRS IV 01/25/20 14:00 01/31/20 14:59 01/26/20 13:02 Ceftriaxone Sodium 1 gm/ Dextrose 55 ml @ 110 mls/hr Q24H IVPB 01/25/20 00:00 02/01/20 00:00 01/26/20 00:27 Dexamethasone Sodium Phosphate (Decadron 10mg/ ml Inj) 6 mg Q24H IV 01/27/20 00:00 02/03/20 00:01 Heparin Sodium (Porcine) (Heparin 5000 units/ml) 5,000 units EVERY 8 HOURS SUBQ 01/25/20 14:00 03/10/20 13:59 01/26/20 13:03 Pantoprazole (Protonix) 40 mg DAILY ORAL 01/25/20 09:00 02/24/20 08:59 01/26/20 08:32 Zinc Sulfate (Zinc Sulfate) 220 mg DAILY ORAL 01/26/20 09:00 04/25/20 08:59 01/26/20 08:32 Allergies: Coded Allergies: No Known Allergies (Unverified , 01/24/20) ROS Limited/Unobtainable: No Constitutional: Reports: no symptoms HEENT: Reports: no symptoms Cardiovascular: Reports: no symptoms Respiratory: Reports: shortness of breath Gastrointestinal/Abdominal: Reports: no symptoms Genitourinary: Reports: no symptoms Neurologic/Psychiatric: Reports: no symptoms Subjective 74 YO F admitted with shortness of breath, now COVID 19 pneumonia. Cover for Int ihsan-Dr Elias Objective Last Vital Signs Date Time Temp Pulse Resp B/P (MAP) Pulse Ox O2 Delivery O2 Flow Rate FiO2 01/26/20 16:00 97.7 62 18 139/63 (88) 95 01/26/20 08:05 Nasal Cannula 2.0 Laboratory Tests Test 01/26/20 04:00 White Blood Count 13.3 K/UL (4.8-10.8) H Red Blood Count 4.94 M/UL (4.20-5.40) Hemoglobin 13.7 G/DL (12.0-16.0) Hematocrit 42.3 % (37.0-47.0) Mean Corpuscular Volume 86 FL (80-99) Mean Corpuscular Hemoglobin 27.8 PG (27.0-31.0) Mean Corpuscular Hemoglobin Concent 32.5 G/DL (32.0-36.0) Red Cell Distribution Width 13.5 % (11.6-14.8) Platelet Count 191 K/UL (150-450) Mean Platelet Volume 5.3 FL (6.5-10.1) L Neutrophils (%) (Auto) % (45.0-75.0) Lymphocytes (%) (Auto) % (20.0-45.0) Monocytes (%) (Auto) % (1.0-10.0) Eosinophils (%) (Auto) % (0.0-3.0) Basophils (%) (Auto) % (0.0-2.0) Differential Total Cells Counted 100 Neutrophils % (Manual) 90 % (45-75) H Lymphocytes % (Manual) 9 % (20-45) L Monocytes % (Manual) 1 % (1-10) Eosinophils % (Manual) 0 % (0-3) Basophils % (Manual) 0 % (0-2) Band Neutrophils 0 % (0-8) Platelet Estimate Adequate Platelet Morphology Normal Red Blood Cell Morphology Normal D-Dimer 3.44 mg/L FEU (0.00-0.49) H Sodium Level 139 MMOL/L (136-145) Potassium Level 4.2 MMOL/L (3.5-5.1) Chloride Level 105 MMOL/L (98-107) Carbon Dioxide Level 24 MMOL/L (21-32) Anion Gap 10 mmol/L (5-15) Blood Urea Nitrogen 22 mg/dL (7-18) H Creatinine 0.9 MG/DL (0.55-1.30) Estimat Glomerular Filtration Rate > 60 mL/min (>60) Glucose Level 198 MG/DL (74-106) H Calcium Level 8.6 MG/DL (8.5-10.1) Phosphorus Level 3.3 MG/DL (2.5-4.9) Magnesium Level 2.3 MG/DL (1.8-2.4) Ferritin 248 NG/ML (8-388) Lactate Dehydrogenase 290 U/L (81-234) H C-Reactive Protein, Quantitative 3.0 mg/dL (0.00-0.90) H Microbiology Date/Time Source Procedure Growth Status 01/24/20 22:00 Nasopharynx SARS-CoV-2 RdRp Gene Assay - Final Complete 01/25/20 08:00 Urine,Clean Catch Urine Culture - Preliminary NO GROWTH Resulted Intake and Output 01/25/20 01/26/20 19:00 07:00 Intake Total 600 ml 530 ml Balance 600 ml 530 ml Intake Oral 600 ml 530 ml # Voids 5 2 Objective PHYSICAL EXAMINATION: GENERAL: Patient is well-developed, well-nourished female, in no apparent distress. HEENT: Eyes, pupils are equal and responsive to light and accommodation. Extraocular movements are intact. NECK: Supple without lymphadenopathy. CHEST: Crackles heard in the bilateral bases. Otherwise, without wheezes. CARDIOVASCULAR: Regular rhythm and rate. S1, S2 normal without murmurs, rubs, or gallops. ABDOMEN: Soft, nontender, nondistended. Positive bowel sounds. No evidence of hepatosplenomegaly. Currently, no rebound or guarding noted. EXTREMITIES: Negative for clubbing, cyanosis, or edema. RECTAL/GENITAL: Not performed. NEUROLOGIC: Cranial nerves II through XII are grossly intact without focal deficits. Motor strength is 5/5 bilaterally. Deep tendon reflexes are 2+ plantar. Assessment/Plan Assessment/Plan ASSESSMENT: This is a 74-year-old female. 1. COVID-19 positive. 2. Bilateral pneumonia. 3. Shortness of breath. 4. Hypoxia. 5. Asthma. 6. Hypertension. 7. Gastritis. 8. Arthritis. TREATMENT: 1. COVID-19 pneumonia. An Infectious Disease consultation has been obtained with Dr. Lau. Patient has been started on remdesivir. Patient has also been receiving albuterol nebulized q.4h. A Pulmonary consultation has been obtained with Dr. Saqib Obando. Follow recommendations of Infectious Disease and Pulmonary. 2. Hypertension. Continue amlodipine and benazepril as above. 3. Gastritis. Continue omeprazole as above. 4. Arthritis. Carlos Eduardo Storey MD Jan 26, 2020 19:20
[2020-01-26 20:00] VITALS: BP 120/61
[2020-01-27] VITALS: BP 139/54
[2020-01-27 04:00] VITALS: BP 108/51
[2020-01-27] MEDS: Heparin 5000 units/ml inj SUBQ SCH ×3 (05:34→22:20)
--- NOTE | 2020-01-27 05:39 | NUR ---
NURSE NOTES: BLOOD DRAWN AND TAKEN DOWN TO LAB.
[2020-01-27 06:16] LABS: HEMATOCRIT 41.8 % (37.0-47.0); HEMOGLOBIN 13.8 G/DL (12.0-16.0); MEAN CORPUSCULAR VOLUME 86 FL (80-99); PLATELET COUNT 232 K/UL (150-450); RED BLOOD COUNT 4.87 M/UL (4.20-5.40); RED CELL DISTRIBUTION WIDTH 13.3 % (11.6-14.8); WHITE BLOOD COUNT 11.3 K/UL (4.8-10.8)
--- NOTE | 2020-01-27 07:31 | NUR ---
NURSE NOTES: Received pt in bed, sleeping. RA. No s/s of distress/pain. IV on R wrist 20g noted, with SL. Side rails x 2. Bed in the lowest and locked. Call light within reach. Will continue to monitor
--- NOTE | 2020-01-27 07:35 | NUR ---
NURSE HAND-OFF REPORT: Important Events on Shift: N/A Patient Status: STABLE Diet: CARDIAC Pending Orders: N/A Pending Results/Labs: 9 AM LABS Pending MD notification: N/A Latest Vital Signs: Temperature 97.7 , Pulse 68 , B/P 108 /51 , Respiratory Rate 18 , O2 SAT 94 , Nasal Cannula, O2 Flow Rate 2.0 . Vital Sign Comment: STABLE EKG Rhythm: Sinus Bradycardia Rhythm change?: N MD Notified?: N - MD Response: Latest Rowe Fall Score: 35 Fall Risk: Medium Risk Safety Measures: Call light Within Reach, Bed Alarm Zone 2, Side Rails Side Rails x2, Bed position Low and Locked. Fall Precautions: Yellow Socks Yellow Gown Patient Fall Education Report given to WILBER MOTT.
[2020-01-27 07:55] LABS: ALANINE AMINOTRANSFERASE 37 U/L (12-78); ALBUMIN 2.2 G/DL (3.4-5.0); ALBUMIN/GLOBULIN RATIO 0.5 (1.0-2.7); ALKALINE PHOSPHATASE 63 U/L (46-116); ANION GAP 13 mmol/L (5-15); ASPARTATE AMINO TRANSFERASE 25 U/L (15-37); BILIRUBIN,TOTAL < 0.1 MG/DL (0.2-1.0); BLOOD UREA NITROGEN 22 mg/dL (7-18); CALCIUM 8.4 MG/DL (8.5-10.1); CARBON DIOXIDE 22 MMOL/L (21-32); CHLORIDE 103 MMOL/L (98-107); CREATININE 0.9 MG/DL (0.55-1.30); FERRITIN 210 NG/ML (8-388); PHOSPHORUS 3.3 MG/DL (2.5-4.9); POTASSIUM 4.6 MMOL/L (3.5-5.1); SODIUM 138 MMOL/L (136-145)
[2020-01-27 08:00] VITALS: BP 130/65
--- NOTE | 2020-01-27 08:15 | NUR ---
INSURANCE CLINCALS AND INTERQUAL FAXED TO [facility] T:[phone] F: [phone] REF#[id number] [phone]
[2020-01-27] MEDS: Zinc Sulfate 220mg ORAL SCH (08:42)
[2020-01-27] MEDS: Aspirin Baby 81mg ORAL SCH (08:42)
[2020-01-27] MEDS: Ascorbic Acid 500mg tab ORAL SCH ×2 (08:42→17:13)
--- NOTE | 2020-01-27 11:47 | Pulmonology Progress Note ---
Subjective Interval Events: feeling better Allergies: Coded Allergies: No Known Allergies (Unverified , 01/24/20) Objective Last 24 Hour Vital Signs Date Time Temp Pulse Resp B/P (MAP) Pulse Ox O2 Delivery O2 Flow Rate FiO2 01/27/20 08:42 58 130/65 01/27/20 08:21 Room Air 01/27/20 08:00 97.7 58 18 130/65 (86) 93 01/27/20 08:00 58 01/27/20 04:00 97.7 68 18 108/51 (70) 94 01/27/20 04:00 51 01/27/20 00:00 97.5 52 20 139/54 (82) 95 01/27/20 00:00 48 01/26/20 21:00 Nasal Cannula 2.0 01/26/20 20:00 98.1 55 18 120/61 (80) 95 01/26/20 20:00 59 01/26/20 16:00 97.7 62 18 139/63 (88) 95 01/26/20 16:00 67 01/26/20 12:00 97.0 65 20 136/65 (88) 96 01/26/20 12:00 58 Intake and Output 01/26/20 01/27/20 19:00 07:00 Intake Total 500 ml 360 ml Balance 500 ml 360 ml Intake Oral 500 ml 360 ml # Voids 2 2 General Appearance: WD/WN HEENT: normocephalic, atraumatic Respiratory: chest wall non-tender, lungs clear, expiratory wheezing Cardiovascular: normal rate Abdomen: normal bowel sounds, soft, non tender, non distended Genitourinary: normal external genitalia Skin: no rash, no ulcers Neurologic: computer repairer II-XII grossly normal Lymphatic: no neck adenopathy Microbiology Date/Time Source Procedure Growth Status 01/25/20 05:00 Blood Blood Culture - Preliminary NO GROWTH AFTER 24 HOURS Resulted 01/24/20 22:00 Nasopharynx SARS-CoV-2 RdRp Gene Assay - Final Complete 01/25/20 08:00 Urine,Clean Catch Urine Culture - Preliminary Mixed Gram Positive Organism Resulted Laboratory Tests 01/27/20 05:30: White Blood Count 11.3H, Red Blood Count 4.87, Hemoglobin 13.8, Hematocrit 41.8 , Mean Corpuscular Volume 86, Mean Corpuscular Hemoglobin 28.3, Mean Corpuscular Hemoglobin Concent 33.0, Red Cell Distribution Width 13.3, Platelet Count 232, Mean Platelet Volume 5.3L, Neutrophils (%) (Auto) , Lymphocytes (%) ( Auto) , Monocytes (%) (Auto) , Eosinophils (%) (Auto) , Basophils (%) (Auto) , Differential Total Cells Counted 100, Neutrophils % (Manual) 88H, Lymphocytes % (Manual) 12L, Monocytes % (Manual) 0L, Eosinophils % (Manual) 0, Basophils % ( Manual) 0, Band Neutrophils 0, Platelet Estimate Adequate, Platelet Morphology Normal, Red Blood Cell Morphology Normal, Erythrocyte Sedimentation Rate 36H, Fibrinogen 455H, D-Dimer 0.49, Sodium Level 138, Potassium Level 4.6, Chloride Level 103, Carbon Dioxide Level 22, Anion Gap 13, Blood Urea Nitrogen 22H, Creatinine 0.9, Estimat Glomerular Filtration Rate > 60, Glucose Level 202H, Calcium Level 8.4L, Phosphorus Level 3.3, Magnesium Level 2.3, Ferritin 210, Total Bilirubin < 0.1L, Aspartate Amino Transf (AST/SGOT) 25, Alanine Aminotransferase (ALT/SGPT) 37, Alkaline Phosphatase 63, Lactate Dehydrogenase 275H, C-Reactive Protein, Quantitative 1.4H, Total Protein 6.6, Albumin 2.2L, Globulin 4.4, Albumin/Globulin Ratio 0.5L, HIV (1&2) Antibody Rapid Negative 01/27/20 08:47: Arterial Blood pH 7.463H, Arterial Blood Partial Pressure CO2 32.8L, Arterial Blood Partial Pressure O2 132.0H, Arterial Blood HCO3 23.0, Arterial Blood Oxygen Saturation 98.5, Arterial Blood Base Excess 0, Hermilo Test Positive Current Medications Medications (Trade) Dose Ordered Sig/Jaime Route PRN Reason Start Time Stop Time Status Last Admin Dose Admin Acetaminophen (Tylenol) 650 mg Q6H PRN ORAL For Headache 01/24/20 21:45 02/23/20 21:44 Albuterol Sulfate (Proventil MDI) 2 puff Q4H PRN INH Shortness of Breath 01/25/20 02:15 04/24/20 02:14 Amlodipine Besylate (Norvasc) 10 mg DAILY ORAL 01/25/20 09:00 02/24/20 08:59 01/27/20 08:42 Ascorbic Acid (Vitamin C) 500 mg TWICE A DAY ORAL 01/25/20 18:00 02/24/20 17:59 01/27/20 08:42 Aspirin (ASA) 81 mg DAILY ORAL 01/25/20 09:00 03/10/20 08:59 01/27/20 08:42 Azithromycin 500 mg/Dextrose 275 ml @ 275 mls/hr Q24HRS IV 01/25/20 14:00 01/31/20 14:59 01/26/20 13:02 Ceftriaxone Sodium 1 gm/ Dextrose 55 ml @ 110 mls/hr Q24H IVPB 01/25/20 00:00 02/01/20 00:00 01/26/20 23:56 Dexamethasone Sodium Phosphate (Decadron 10mg/ ml Inj) 6 mg Q24H IV 01/27/20 00:00 02/03/20 00:01 01/26/20 23:55 Heparin Sodium (Porcine) (Heparin 5000 units/ml) 5,000 units EVERY 8 HOURS SUBQ 01/25/20 14:00 03/10/20 13:59 01/27/20 05:34 Pantoprazole (Protonix) 40 mg DAILY ORAL 01/25/20 09:00 02/24/20 08:59 01/27/20 08:42 Zinc Sulfate (Zinc Sulfate) 220 mg DAILY ORAL 01/26/20 09:00 04/25/20 08:59 01/27/20 08:42 Assessment/Plan Problems: (1) History of asthma (2) 2019 novel coronavirus disease (COVID-19) (3) Acute bronchitis Assessment/Plan improving CRP is almost normal, Doubt COVID pneumonia check sputum respiratory treatment titrate fio2 to sat of 92% f/u ID recommendations dvt prophylaxis Saqib Obando MD Jan 27, 2020 11:47
[2020-01-27 12:00] VITALS: BP 138/55
--- NOTE | 2020-01-27 12:42 | Infectious Diseases Prog Note ---
Assessment/Plan Assessment: COVID19 Pneumonia Acute hypoxic resp failure- on/off 2l NC -01/25 LDH 290, ferritin 248m CRP 3.0, D-dimer 3.34 -01/24 CXR: Mild, peripheral patchy airspace opacity which should be correlated with CT scan if there is concern for viral pneumonitis.No focal or lobar infiltrate. No pneumothorax. No pleural effusion appeared -01/23 rapid COVID PCR + Afebrile Leukocytosis (on steroids); improving -u/a wbc 40-60, nit neg, leuk +2; ucx 10-20 mixed gram positive organisms Asthma HTN gastritis sp cholecystectomy arthritis Plan: -Continue Ceftriaxone and Azithromycin #3/5 -Decadron #3 -Requested remdesevir- however was denied by [facility] COVID task force committee per current protocol --seems to be improving- on/off requiring O2- will continue to monitor -f/u cx -Monitor CBC/CMP, temperatures -COVID19 isolation -CXR am Thank you for this consultation. Will continue to follow along with you. Discussed with RN and pharmacy staff. Subjective Allergies: Coded Allergies: No Known Allergies (Unverified , 01/24/20) afebrile on/off 2l NC inflammatory markers improving Objective Last 24 Hour Vital Signs Date Time Temp Pulse Resp B/P (MAP) Pulse Ox O2 Delivery O2 Flow Rate FiO2 01/27/20 12:00 96.8 50 18 138/55 (82) 94 01/27/20 12:00 58 01/27/20 08:42 58 130/65 01/27/20 08:21 Room Air 01/27/20 08:00 97.7 58 18 130/65 (86) 93 01/27/20 08:00 58 01/27/20 04:00 97.7 68 18 108/51 (70) 94 01/27/20 04:00 51 01/27/20 00:00 97.5 52 20 139/54 (82) 95 01/27/20 00:00 48 01/26/20 21:00 Nasal Cannula 2.0 01/26/20 20:00 98.1 55 18 120/61 (80) 95 01/26/20 20:00 59 01/26/20 16:00 97.7 62 18 139/63 (88) 95 01/26/20 16:00 67 Height (Feet): 5 Height (Inches): 5.00 Weight (Pounds): 185 GENERAL: Patient is well-developed, well-nourished female, in no apparent distress. HEENT: Eyes, pupils are equal and responsive to light and accommodation. Extraocular movements are intact. NECK: Supple without lymphadenopathy. CHEST: Crackles heard in the bilateral bases. Otherwise, without wheezes. CARDIOVASCULAR: Regular rhythm and rate. S1, S2 normal without murmurs, rubs, or gallops. ABDOMEN: Soft, nontender, nondistended. Positive bowel sounds. EXTREMITIES: Negative for clubbing, cyanosis, or edema. Microbiology Date/Time Source Procedure Growth Status 01/25/20 05:00 Blood Blood Culture - Preliminary NO GROWTH AFTER 24 HOURS Resulted 01/24/20 22:00 Nasopharynx SARS-CoV-2 RdRp Gene Assay - Final Complete 01/25/20 08:00 Urine,Clean Catch Urine Culture - Preliminary Mixed Gram Positive Organism Resulted Laboratory Tests Test 01/27/20 05:30 01/27/20 08:47 White Blood Count 11.3 K/UL (4.8-10.8) H Red Blood Count 4.87 M/UL (4.20-5.40) Hemoglobin 13.8 G/DL (12.0-16.0) Hematocrit 41.8 % (37.0-47.0) Mean Corpuscular Volume 86 FL (80-99) Mean Corpuscular Hemoglobin 28.3 PG (27.0-31.0) Mean Corpuscular Hemoglobin Concent 33.0 G/DL (32.0-36.0) Red Cell Distribution Width 13.3 % (11.6-14.8) Platelet Count 232 K/UL (150-450) Mean Platelet Volume 5.3 FL (6.5-10.1) L Neutrophils (%) (Auto) % (45.0-75.0) Lymphocytes (%) (Auto) % (20.0-45.0) Monocytes (%) (Auto) % (1.0-10.0) Eosinophils (%) (Auto) % (0.0-3.0) Basophils (%) (Auto) % (0.0-2.0) Differential Total Cells Counted 100 Neutrophils % (Manual) 88 % (45-75) H Lymphocytes % (Manual) 12 % (20-45) L Monocytes % (Manual) 0 % (1-10) L Eosinophils % (Manual) 0 % (0-3) Basophils % (Manual) 0 % (0-2) Band Neutrophils 0 % (0-8) Platelet Estimate Adequate Platelet Morphology Normal Red Blood Cell Morphology Normal Erythrocyte Sedimentation Rate 36 MM/HR (0-30) H Fibrinogen 455 mg/dL (200-400) H D-Dimer 0.49 mg/L FEU (0.00-0.49) Sodium Level 138 MMOL/L (136-145) Potassium Level 4.6 MMOL/L (3.5-5.1) Chloride Level 103 MMOL/L (98-107) Carbon Dioxide Level 22 MMOL/L (21-32) Anion Gap 13 mmol/L (5-15) Blood Urea Nitrogen 22 mg/dL (7-18) H Creatinine 0.9 MG/DL (0.55-1.30) Estimat Glomerular Filtration Rate > 60 mL/min (>60) Glucose Level 202 MG/DL (74-106) H Calcium Level 8.4 MG/DL (8.5-10.1) L Phosphorus Level 3.3 MG/DL (2.5-4.9) Magnesium Level 2.3 MG/DL (1.8-2.4) Ferritin 210 NG/ML (8-388) Total Bilirubin < 0.1 MG/DL (0.2-1.0) L Aspartate Amino Transf (AST/SGOT) 25 U/L (15-37) Alanine Aminotransferase (ALT/SGPT) 37 U/L (12-78) Alkaline Phosphatase 63 U/L (46-116) Lactate Dehydrogenase 275 U/L (81-234) H C-Reactive Protein, Quantitative 1.4 mg/dL (0.00-0.90) H Total Protein 6.6 G/DL (6.4-8.2) Albumin 2.2 G/DL (3.4-5.0) L Globulin 4.4 g/dL Albumin/Globulin Ratio 0.5 (1.0-2.7) L HIV (1&2) Antibody Rapid Negative (NEGATIVE) Arterial Blood pH 7.463 (7.350-7.450) Arterial Blood Partial Pressure CO2 32.8 mmHg (35.0-45.0) L Arterial Blood Partial Pressure O2 132.0 mmHg (75.0-100.0) H Arterial Blood HCO3 23.0 mmol/L (22.0-26.0) Arterial Blood Oxygen Saturation 98.5 % (95-100) Arterial Blood Base Excess 0 (-2-2) Hermilo Test Positive Current Medications Medications (Trade) Dose Ordered Sig/Jaime Route PRN Reason Start Time Stop Time Status Last Admin Dose Admin Acetaminophen (Tylenol) 650 mg Q6H PRN ORAL For Headache 01/24/20 21:45 02/23/20 21:44 Albuterol Sulfate (Proventil MDI) 2 puff Q4H PRN INH Shortness of Breath 01/25/20 02:15 04/24/20 02:14 Amlodipine Besylate (Norvasc) 10 mg DAILY ORAL 01/25/20 09:00 02/24/20 08:59 01/27/20 08:42 Ascorbic Acid (Vitamin C) 500 mg TWICE A DAY ORAL 01/25/20 18:00 02/24/20 17:59 01/27/20 08:42 Aspirin (ASA) 81 mg DAILY ORAL 01/25/20 09:00 03/10/20 08:59 01/27/20 08:42 Azithromycin 500 mg/Dextrose 275 ml @ 275 mls/hr Q24HRS IV 01/25/20 14:00 01/31/20 14:59 01/26/20 13:02 Ceftriaxone Sodium 1 gm/ Dextrose 55 ml @ 110 mls/hr Q24H IVPB 01/25/20 00:00 02/01/20 00:00 01/26/20 23:56 Dexamethasone Sodium Phosphate (Decadron 10mg/ ml Inj) 6 mg Q24H IV 01/27/20 00:00 02/03/20 00:01 01/26/20 23:55 Heparin Sodium (Porcine) (Heparin 5000 units/ml) 5,000 units EVERY 8 HOURS SUBQ 01/25/20 14:00 03/10/20 13:59 01/27/20 05:34 Pantoprazole (Protonix) 40 mg DAILY ORAL 01/25/20 09:00 02/24/20 08:59 01/27/20 08:42 Zinc Sulfate (Zinc Sulfate) 220 mg DAILY ORAL 01/26/20 09:00 04/25/20 08:59 01/27/20 08:42 Nevaeh Dalal M.D. Jan 27, 2020 12:42
[2020-01-27] MEDS: Azithromycin 500 MG in D5W 275 ML IV SCH (13:02)
--- NOTE | 2020-01-27 13:47 | NUR ---
INSURANCE CLINCALS AND INTERQUAL FAXED TO [facility] T:[phone] F: [phone] REF#[id number] [phone]
--- NOTE | 2020-01-27 13:50 | NUR ---
CASE MANAGEMENT: REVIEW IN INTERQUAL....CRITERIA MET
[2020-01-27] MEDS ORDERED: PATADAY2.5 ML OP (15:21)
[2020-01-27] MEDS ORDERED: VITAMIN B-12500 MCG ORAL (15:21)
[2020-01-27] MEDS ORDERED: PROAIR HFA8.5 GM INH (15:21)
[2020-01-27] MEDS ORDERED: NITROSTAT0.3 MG SL (15:21)
[2020-01-27] MEDS ORDERED: DICLOFENAC SODI75 MG ORAL (15:21)
[2020-01-27] MEDS ORDERED: LORATADINE10 M1 PO (15:21)
[2020-01-27] MEDS ORDERED: FLONASE ALLERG9.9 ML NS (15:21)
[2020-01-27 16:00] VITALS: BP 135/55
--- NOTE | 2020-01-27 17:48 | NUR ---
NURSE NOTES: Patient had episode of atrial tachy @ [address] for [address] Storey and awaiting for order
--- NOTE | 2020-01-27 18:23 | Internal Med Progress Note ---
Subjective Date of Service: Jan 27, 2020 Physician Name Carlos Eduardo Storey Attending Physician Leroy Elias MD Current Medications Medications (Trade) Dose Ordered Sig/Jaime Route PRN Reason Start Time Stop Time Status Last Admin Dose Admin Acetaminophen (Tylenol) 650 mg Q6H PRN ORAL For Headache 01/24/20 21:45 02/23/20 21:44 Albuterol Sulfate (Proventil MDI) 2 puff Q4H PRN INH Shortness of Breath 01/25/20 02:15 04/24/20 02:14 Amlodipine Besylate (Norvasc) 10 mg DAILY ORAL 01/25/20 09:00 02/24/20 08:59 01/27/20 08:42 Ascorbic Acid (Vitamin C) 500 mg TWICE A DAY ORAL 01/25/20 18:00 02/24/20 17:59 01/27/20 17:13 Aspirin (ASA) 81 mg DAILY ORAL 01/25/20 09:00 03/10/20 08:59 01/27/20 08:42 Azithromycin 500 mg/Dextrose 275 ml @ 275 mls/hr Q24HRS IV 01/25/20 14:00 01/31/20 14:59 01/27/20 13:02 Ceftriaxone Sodium 1 gm/ Dextrose 55 ml @ 110 mls/hr Q24H IVPB 01/25/20 00:00 02/01/20 00:00 01/26/20 23:56 Dexamethasone Sodium Phosphate (Decadron 10mg/ ml Inj) 6 mg Q24H IV 01/27/20 00:00 02/03/20 00:01 01/26/20 23:55 Heparin Sodium (Porcine) (Heparin 5000 units/ml) 5,000 units EVERY 8 HOURS SUBQ 01/25/20 14:00 03/10/20 13:59 01/27/20 13:03 Pantoprazole (Protonix) 40 mg DAILY ORAL 01/25/20 09:00 02/24/20 08:59 01/27/20 08:42 Zinc Sulfate (Zinc Sulfate) 220 mg DAILY ORAL 01/26/20 09:00 04/25/20 08:59 01/27/20 08:42 Allergies: Coded Allergies: No Known Allergies (Unverified , 01/24/20) ROS Limited/Unobtainable: No Constitutional: Reports: no symptoms HEENT: Reports: no symptoms Cardiovascular: Reports: no symptoms Respiratory: Reports: no symptoms Gastrointestinal/Abdominal: Reports: no symptoms Genitourinary: Reports: no symptoms Subjective 74 YO F admitted with shortness of breath, now COVID 19 pneumonia. Cover for Int ihsan-Dr Elias Objective Last Vital Signs Date Time Temp Pulse Resp B/P (MAP) Pulse Ox O2 Delivery O2 Flow Rate FiO2 01/27/20 16:00 53 01/27/20 16:00 98.0 18 135/55 (81) 93 01/27/20 08:21 Room Air 01/26/20 21:00 2.0 Laboratory Tests Test 01/27/20 05:30 01/27/20 08:47 White Blood Count 11.3 K/UL (4.8-10.8) H Red Blood Count 4.87 M/UL (4.20-5.40) Hemoglobin 13.8 G/DL (12.0-16.0) Hematocrit 41.8 % (37.0-47.0) Mean Corpuscular Volume 86 FL (80-99) Mean Corpuscular Hemoglobin 28.3 PG (27.0-31.0) Mean Corpuscular Hemoglobin Concent 33.0 G/DL (32.0-36.0) Red Cell Distribution Width 13.3 % (11.6-14.8) Platelet Count 232 K/UL (150-450) Mean Platelet Volume 5.3 FL (6.5-10.1) L Neutrophils (%) (Auto) % (45.0-75.0) Lymphocytes (%) (Auto) % (20.0-45.0) Monocytes (%) (Auto) % (1.0-10.0) Eosinophils (%) (Auto) % (0.0-3.0) Basophils (%) (Auto) % (0.0-2.0) Differential Total Cells Counted 100 Neutrophils % (Manual) 88 % (45-75) H Lymphocytes % (Manual) 12 % (20-45) L Monocytes % (Manual) 0 % (1-10) L Eosinophils % (Manual) 0 % (0-3) Basophils % (Manual) 0 % (0-2) Band Neutrophils 0 % (0-8) Platelet Estimate Adequate Platelet Morphology Normal Red Blood Cell Morphology Normal Erythrocyte Sedimentation Rate 36 MM/HR (0-30) H Fibrinogen 455 mg/dL (200-400) H D-Dimer 0.49 mg/L FEU (0.00-0.49) Sodium Level 138 MMOL/L (136-145) Potassium Level 4.6 MMOL/L (3.5-5.1) Chloride Level 103 MMOL/L (98-107) Carbon Dioxide Level 22 MMOL/L (21-32) Anion Gap 13 mmol/L (5-15) Blood Urea Nitrogen 22 mg/dL (7-18) H Creatinine 0.9 MG/DL (0.55-1.30) Estimat Glomerular Filtration Rate > 60 mL/min (>60) Glucose Level 202 MG/DL (74-106) H Calcium Level 8.4 MG/DL (8.5-10.1) L Phosphorus Level 3.3 MG/DL (2.5-4.9) Magnesium Level 2.3 MG/DL (1.8-2.4) Ferritin 210 NG/ML (8-388) Total Bilirubin < 0.1 MG/DL (0.2-1.0) L Aspartate Amino Transf (AST/SGOT) 25 U/L (15-37) Alanine Aminotransferase (ALT/SGPT) 37 U/L (12-78) Alkaline Phosphatase 63 U/L (46-116) Lactate Dehydrogenase 275 U/L (81-234) H C-Reactive Protein, Quantitative 1.4 mg/dL (0.00-0.90) H Total Protein 6.6 G/DL (6.4-8.2) Albumin 2.2 G/DL (3.4-5.0) L Globulin 4.4 g/dL Albumin/Globulin Ratio 0.5 (1.0-2.7) L HIV (1&2) Antibody Rapid Negative (NEGATIVE) Arterial Blood pH 7.463 (7.350-7.450) Arterial Blood Partial Pressure CO2 32.8 mmHg (35.0-45.0) L Arterial Blood Partial Pressure O2 132.0 mmHg (75.0-100.0) H Arterial Blood HCO3 23.0 mmol/L (22.0-26.0) Arterial Blood Oxygen Saturation 98.5 % (95-100) Arterial Blood Base Excess 0 (-2-2) Hermilo Test Positive Microbiology Date/Time Source Procedure Growth Status 01/25/20 05:00 Blood Blood Culture - Preliminary NO GROWTH AFTER 24 HOURS Resulted 01/24/20 22:00 Nasopharynx SARS-CoV-2 RdRp Gene Assay - Final Complete 01/25/20 08:00 Urine,Clean Catch Urine Culture - Preliminary Mixed Gram Positive Organism Resulted Intake and Output 01/26/20 01/27/20 19:00 07:00 Intake Total 500 ml 360 ml Balance 500 ml 360 ml Intake Oral 500 ml 360 ml # Voids 2 2 Objective PHYSICAL EXAMINATION: GENERAL: Patient is well-developed, well-nourished female, in no apparent distress. HEENT: Eyes, pupils are equal and responsive to light and accommodation. Extraocular movements are intact. NECK: Supple without lymphadenopathy. CHEST: Crackles heard in the bilateral bases. Otherwise, without wheezes. CARDIOVASCULAR: Regular rhythm and rate. S1, S2 normal without murmurs, rubs, or gallops. ABDOMEN: Soft, nontender, nondistended. Positive bowel sounds. No evidence of hepatosplenomegaly. Currently, no rebound or guarding noted. EXTREMITIES: Negative for clubbing, cyanosis, or edema. RECTAL/GENITAL: Not performed. NEUROLOGIC: Cranial nerves II through XII are grossly intact without focal deficits. Motor strength is 5/5 bilaterally. Deep tendon reflexes are 2+ plantar. Assessment/Plan Assessment/Plan ASSESSMENT: This is a 74-year-old female. 1. COVID-19 positive. 2. Bilateral pneumonia. 3. Shortness of breath. 4. Hypoxia. 5. Asthma. 6. Hypertension. 7. Gastritis. 8. Arthritis. TREATMENT: 1. COVID-19 pneumonia. An Infectious Disease consultation has been obtained with Dr. Lau. Patient S/P remdesivir. Patient has also been receiving albuterol nebulized q.4h. A Pulmonary consultation has been obtained with Dr. Saqib Obando. Follow recommendations of Infectious Disease and Pulmonary. 2. Hypertension. Continue amlodipine and benazepril as above. 3. Gastritis. Continue omeprazole as above. 4. Arthritis. Carlos Eduardo Storey MD Jan 27, 2020 18:23
--- NOTE | 2020-01-27 19:09 | Cardiology Progress Note ---
Assessment/Plan Assessment/Plan [id number] will keep watching on tele no need for treatment of atrial tachy at this time thank you Objective Last 24 Hour Vital Signs Date Time Temp Pulse Resp B/P (MAP) Pulse Ox O2 Delivery O2 Flow Rate FiO2 01/27/20 16:00 53 01/27/20 16:00 98.0 60 18 135/55 (81) 93 01/27/20 12:00 96.8 50 18 138/55 (82) 94 01/27/20 12:00 58 01/27/20 08:42 58 130/65 01/27/20 08:21 Room Air 01/27/20 08:00 97.7 58 18 130/65 (86) 93 01/27/20 08:00 58 01/27/20 04:00 97.7 68 18 108/51 (70) 94 01/27/20 04:00 51 01/27/20 00:00 97.5 52 20 139/54 (82) 95 01/27/20 00:00 48 01/26/20 21:00 Nasal Cannula 2.0 01/26/20 20:00 98.1 55 18 120/61 (80) 95 01/26/20 20:00 59 Intake and Output 01/26/20 01/27/20 19:00 07:00 Intake Total 500 ml 360 ml Balance 500 ml 360 ml Intake Oral 500 ml 360 ml # Voids 2 2 Laboratory Tests Test 01/27/20 05:30 01/27/20 08:47 White Blood Count 11.3 K/UL (4.8-10.8) H Red Blood Count 4.87 M/UL (4.20-5.40) Hemoglobin 13.8 G/DL (12.0-16.0) Hematocrit 41.8 % (37.0-47.0) Mean Corpuscular Volume 86 FL (80-99) Mean Corpuscular Hemoglobin 28.3 PG (27.0-31.0) Mean Corpuscular Hemoglobin Concent 33.0 G/DL (32.0-36.0) Red Cell Distribution Width 13.3 % (11.6-14.8) Platelet Count 232 K/UL (150-450) Mean Platelet Volume 5.3 FL (6.5-10.1) L Neutrophils (%) (Auto) % (45.0-75.0) Lymphocytes (%) (Auto) % (20.0-45.0) Monocytes (%) (Auto) % (1.0-10.0) Eosinophils (%) (Auto) % (0.0-3.0) Basophils (%) (Auto) % (0.0-2.0) Differential Total Cells Counted 100 Neutrophils % (Manual) 88 % (45-75) H Lymphocytes % (Manual) 12 % (20-45) L Monocytes % (Manual) 0 % (1-10) L Eosinophils % (Manual) 0 % (0-3) Basophils % (Manual) 0 % (0-2) Band Neutrophils 0 % (0-8) Platelet Estimate Adequate Platelet Morphology Normal Red Blood Cell Morphology Normal Erythrocyte Sedimentation Rate 36 MM/HR (0-30) H Fibrinogen 455 mg/dL (200-400) H D-Dimer 0.49 mg/L FEU (0.00-0.49) Sodium Level 138 MMOL/L (136-145) Potassium Level 4.6 MMOL/L (3.5-5.1) Chloride Level 103 MMOL/L (98-107) Carbon Dioxide Level 22 MMOL/L (21-32) Anion Gap 13 mmol/L (5-15) Blood Urea Nitrogen 22 mg/dL (7-18) H Creatinine 0.9 MG/DL (0.55-1.30) Estimat Glomerular Filtration Rate > 60 mL/min (>60) Glucose Level 202 MG/DL (74-106) H Calcium Level 8.4 MG/DL (8.5-10.1) L Phosphorus Level 3.3 MG/DL (2.5-4.9) Magnesium Level 2.3 MG/DL (1.8-2.4) Ferritin 210 NG/ML (8-388) Total Bilirubin < 0.1 MG/DL (0.2-1.0) L Aspartate Amino Transf (AST/SGOT) 25 U/L (15-37) Alanine Aminotransferase (ALT/SGPT) 37 U/L (12-78) Alkaline Phosphatase 63 U/L (46-116) Lactate Dehydrogenase 275 U/L (81-234) H C-Reactive Protein, Quantitative 1.4 mg/dL (0.00-0.90) H Total Protein 6.6 G/DL (6.4-8.2) Albumin 2.2 G/DL (3.4-5.0) L Globulin 4.4 g/dL Albumin/Globulin Ratio 0.5 (1.0-2.7) L HIV (1&2) Antibody Rapid Negative (NEGATIVE) Arterial Blood pH 7.463 (7.350-7.450) Arterial Blood Partial Pressure CO2 32.8 mmHg (35.0-45.0) L Arterial Blood Partial Pressure O2 132.0 mmHg (75.0-100.0) H Arterial Blood HCO3 23.0 mmol/L (22.0-26.0) Arterial Blood Oxygen Saturation 98.5 % (95-100) Arterial Blood Base Excess 0 (-2-2) Hermilo Test Positive Microbiology Date/Time Source Procedure Growth Status 01/25/20 05:00 Blood Blood Culture - Preliminary NO GROWTH AFTER 24 HOURS Resulted 01/24/20 22:00 Nasopharynx SARS-CoV-2 RdRp Gene Assay - Final Complete 01/25/20 08:00 Urine,Clean Catch Urine Culture - Preliminary Mixed Gram Positive Organism Resulted Yariel Funes MD Jan 27, 2020 19:09
--- NOTE | 2020-01-27 19:23 | NUR ---
NURSE HAND-OFF REPORT: Important Events on Shift: hr elevated to 100 Patient Status: FC, stable Diet: cardiac Pending Orders: n/a Pending Results/Labs: n/a Pending MD notification: n/a Latest Vital Signs: Temperature 98.0 , Pulse 53 , B/P 135 /55 , Respiratory Rate 18 , O2 SAT 93 , Room Air, O2 Flow Rate 2.0 . Vital Sign Comment: EKG Rhythm: Sinus Bradycardia Rhythm change?: N MD Notified?: N - MD Response: Latest Rowe Fall Score: 35 Fall Risk: Medium Risk Safety Measures: Call light Within Reach, Bed Alarm Zone 2, Side Rails Side Rails x2, Bed position Low and Locked. Fall Precautions: Yellow Socks Yellow Gown Patient Fall Education Report given to WILBER Yan.
--- NOTE | 2020-01-27 19:45 | NUR ---
NURSE NOTES: Pt received from Ben MERINO. Pt is alert and oriented x4 and resting in bed. Pt is sating 95% on RA and coughs occasionally. Pt is on Cardiac Monitoring SB 55 BPM and shows no symptoms of distress. Pt has 20 G SL patent, dry, and intact. Pt has bed rails up x2, bed in lowest position, brakes engaged, and call light within reach. Will continue to monitor.
[2020-01-27 20:00] VITALS: BP 138/64
--- NOTE | 2020-01-27 23:30 | Consultation ---
DATE OF CONSULTATION: 01/27/2020 CARDIOLOGY CONSULTATION REFERRING PHYSICIAN: Leroy Elias M.D. and Carlos Eduardo Storey M.D. REASON FOR REFERRAL: Atrial tachycardia. This is a middle-aged female who was initially evaluated at [facility] when she presented with 2 weeks of intermittent shortness of breath, associated with mild cough, tactile fevers, and was noted to have low pulse oximetry, was sent to the emergency room at [place] and was noted to have some hypoxemia. The patient was diagnosed with COVID and was transferred to [facility] for further cares for insurance reasons. While here, on the monitor, she was noted to have some episode of short atrial tachycardia and this consultation is requested. I discussed the case with the patient over the phone. The patient denies any chest pain. At the present time, her breathing is better at home. She uses 2 pillows at home. She does not get any dizziness on standing and she does walk some, but she does not seem to have chest pains or shortness of breath when she walks. She does occasionally get palpitations, but she denies having any today. PAST MEDICAL HISTORY: According to the chart is positive for history of asthma, and she does have a history of hypertension, asthma, gastritis, arthritis. She does have a history of cholecystectomy as well. ALLERGIES: She denies any allergies to medications. SOCIAL HISTORY: She does not smoke or drink alcoholic beverages. She apparently lives at home, although at this time, of course, she is in the hospital. REVIEW OF SYSTEMS: GASTROINTESTINAL: She denies any diarrhea today, but she did have some loose stools. No black or bloody stools. GENITOURINARY: Denies any burning on urination. PULMONARY: Denies any coughing or wheezing. CONSTITUTIONAL: As mentioned in HPI. PHYSICAL EXAMINATION: No performed by me today as the patient is COVID positive and I did not see the patient personally. I did review other physician's notation, who saw the patient today and they have noticed that the patient was in no apparent respiratory distress on general examination. NECK: Supple. No lymphadenopathy. LUNGS: Crackles on the bilateral bases, otherwise without wheezes. CARDIAC: Regular rate. S1, S2 are normal without murmurs, rubs, or gallops. ABDOMEN: Soft, nontender. EXTREMITY: Apparently was negative for edema. LABORATORY AND DIAGNOSTIC DATA: Her white count 11.3, hemoglobin 13.8, and platelet count 232. Sed rate is only 36. She had a white count of 8.9 at the time of admission. Blood gases, pH of 7.4, pCO2 of 33, pO2 of 132, and bicarb of 23, 98.5% saturation. Sodium is 138, potassium 4.2, chloride 103, bicarb 22, BUN of 22, creatinine 0.9 and glucose of 202. Calcium is 8.4, LDH of 290, subsequently 275, CRP of 1.4. Albumin of 2.2. D-dimer was 0.49, down from 3.44 and fibrinogen of 432. She did have troponins that were drawn 2 days ago that were negative, and her urinalysis 40-60 wbc's, 0-2 rbc's. HIV serology was negative. IMAGING: Chest x-ray shows mild peripheral patchy airspace opacity, which should be correlated with CT scan if there is a concern for viral pneumonitis. No focal or lobular infiltrates. No pneumothorax. No pleural effusion. Heart size was normal. Electrocardiogram that is available shows normal sinus rhythm, leftward axis, but not left axis deviation, normal ST or T waves without any significant abnormality. air sampling and monitoring data was reviewed. The patient has basically sinus rhythm, had a bout of what appears to be an ectopic atrial tachycardia with rates about 110 or so, but usually about heart rate of 62. This was the first time that she was noted to have this arrhythmia. No other arrhythmias of any significant degree are recorded on the monitor strips on my review. She has had heart rate of 106, which appeared to be sinus in origin, but nothing suggestive of atrial tachycardia as noted on this piece of telemetry. ASSESSMENT AND PLAN: 1. Ectopic atrial tachycardia, limited in duration. 2. COVID-19 infection. 3. Possible pneumonia. 4. Acute hypoxemia. 5. Asthma history. 6. Hypertension history. Dr. Elias and Dr. Storey, this patient was seen in cardiac consultation. The patient does not have any significant signs of coronary syndrome nor symptoms of palpitations. Rather than any treatment at this time, I would prefer to watch her on telemetry while she is getting treated for her underlying infection. If she has frequent recurrences of atrial tachycardia, possibly some beta-blockers could be administered, which obviously, with the history of asthma, I am trying to avoid. Yariel Funes M.D. DR: BISHOP JOB#: [id number] CC:
[2020-01-28] VITALS: BP 143/60
[2020-01-28] MEDS: cefTRIAXone 1 GM in D5W 55 ML IVPB SCH (00:25)
[2020-01-28] MEDS: dexAMETHasone 10mg/ml Inj IV SCH (00:26)
[2020-01-28 04:00] VITALS: BP 151/67
[2020-01-28] MEDS: Heparin 5000 units/ml inj SUBQ SCH ×3 (06:20→21:56)
[2020-01-28 07:02] LABS: HEMATOCRIT 40.6 % (37.0-47.0); HEMOGLOBIN 13.8 G/DL (12.0-16.0); MEAN CORPUSCULAR VOLUME 84 FL (80-99); PLATELET COUNT 239 K/UL (150-450); RED BLOOD COUNT 4.81 M/UL (4.20-5.40); RED CELL DISTRIBUTION WIDTH 13.3 % (11.6-14.8); WHITE BLOOD COUNT 11.2 K/UL (4.8-10.8)
--- NOTE | 2020-01-28 07:16 | NUR ---
NURSE HAND-OFF REPORT: Important Events on Shift:Pt continued on antibiotics. Patient Status: Alert and Oriented x4 Diet: Cardiac Latest Vital Signs: Temperature 97.5 , Pulse 45 , B/P 151 /67 , Respiratory Rate 16 , O2 SAT 92 , Room Air, O2 Flow Rate 2.0 . Vital Sign Comment: Patient asymptomatic EKG Rhythm: Sinus Bradycardia Rhythm change?: N Latest Rowe Fall Score: 35 Fall Risk: Medium Risk Safety Measures: Call light Within Reach, Bed Alarm Zone 2, Side Rails Side Rails x2, Bed position Low and Locked. Fall Precautions: Yellow Socks Yellow Gown Patient Fall Education Report given to WILBER Bentley.
--- NOTE | 2020-01-28 07:18 | NUR ---
NURSE NOTES: Received report from Jerson/RN, Observed patient awake, eating breakfast in bed. On room air, No acute distress/SOB noted. Patient has PRN 2L nasal canula O2 if needed. IV site patent and intact. Bed in low position and locked, Call light and bedside table within reach. Encouraged to use call light when needed. Will continue plan of care.
[2020-01-28 07:27] LABS: ALANINE AMINOTRANSFERASE 45 U/L (12-78); ALBUMIN 2.4 G/DL (3.4-5.0); ALBUMIN/GLOBULIN RATIO 0.6 (1.0-2.7); ALKALINE PHOSPHATASE 57 U/L (46-116); ANION GAP 9 mmol/L (5-15); ASPARTATE AMINO TRANSFERASE 20 U/L (15-37); BILIRUBIN,TOTAL 0.1 MG/DL (0.2-1.0); BLOOD UREA NITROGEN 21 mg/dL (7-18); CALCIUM 8.2 MG/DL (8.5-10.1); CARBON DIOXIDE 27 MMOL/L (21-32); CHLORIDE 105 MMOL/L (98-107); CREATININE 0.8 MG/DL (0.55-1.30); POTASSIUM 4.1 MMOL/L (3.5-5.1); SODIUM 141 MMOL/L (136-145)
[2020-01-28 08:00] VITALS: BP 138/68
[2020-01-28] MEDS: Zinc Sulfate 220mg ORAL SCH (08:41)
[2020-01-28] MEDS: Aspirin Baby 81mg ORAL SCH (08:41)
[2020-01-28] MEDS: Ascorbic Acid 500mg tab ORAL SCH ×2 (08:41→17:53)
[2020-01-28 12:00] VITALS: BP 129/61
--- NOTE | 2020-01-28 12:26 | Diagnostic Imaging Report ---
Indication: Dyspnea Technique: One view of the chest Comparison: 01/25/2020 Findings: Streaky peripheral infiltrates in peribronchovascular distribution are again demonstrated. The heart size is normal. Findings are unchanged. The pleural spaces are clear Impression: Unchanged, over 3 days, findings as above.
--- NOTE | 2020-01-28 12:29 | Pulmonology Progress Note ---
Subjective ROS Limited/Unobtainable: No Interval Events: feeling better Allergies: Coded Allergies: No Known Allergies (Unverified , 01/24/20) Objective Last 24 Hour Vital Signs Date Time Temp Pulse Resp B/P (MAP) Pulse Ox O2 Delivery O2 Flow Rate FiO2 01/28/20 09:00 Room Air 01/28/20 08:41 64 138/68 01/28/20 08:00 69 01/28/20 08:00 98.6 64 18 138/68 (91) 93 01/28/20 04:00 45 01/28/20 04:00 97.5 52 16 151/67 (95) 92 01/28/20 00:00 97.5 50 16 143/60 (87) 92 01/28/20 00:00 60 01/27/20 21:00 Room Air 01/27/20 20:00 55 01/27/20 20:00 97.7 54 20 138/64 (88) 93 01/27/20 16:00 53 01/27/20 16:00 98.0 60 18 135/55 (81) 93 Intake and Output 01/27/20 01/28/20 19:00 07:00 Intake Total 720 ml 840 ml Balance 720 ml 840 ml Intake Oral 720 ml 840 ml # Voids 4 4 # Bowel Movements 2 1 General Appearance: WD/WN HEENT: normocephalic, atraumatic Respiratory: chest wall non-tender, lungs clear, expiratory wheezing Cardiovascular: normal rate Abdomen: normal bowel sounds, soft, non tender, non distended Genitourinary: normal external genitalia Skin: no rash, no ulcers Neurologic: body cleaner II-XII grossly normal Lymphatic: no neck adenopathy Laboratory Tests 01/28/20 04:30: White Blood Count 11.2H, Red Blood Count 4.81, Hemoglobin 13.8, Hematocrit 40.6 , Mean Corpuscular Volume 84, Mean Corpuscular Hemoglobin 28.6, Mean Corpuscular Hemoglobin Concent 33.9, Red Cell Distribution Width 13.3, Platelet Count 239, Mean Platelet Volume 5.0L, Neutrophils (%) (Auto) , Lymphocytes (%) ( Auto) , Monocytes (%) (Auto) , Eosinophils (%) (Auto) , Basophils (%) (Auto) , Differential Total Cells Counted 100, Neutrophils % (Manual) 85H, Lymphocytes % (Manual) 14L, Monocytes % (Manual) 1, Eosinophils % (Manual) 0, Basophils % ( Manual) 0, Band Neutrophils 0, Platelet Estimate Adequate, Platelet Morphology Normal, Red Blood Cell Morphology Normal, Erythrocyte Sedimentation Rate 37H, Sodium Level 141, Potassium Level 4.1, Chloride Level 105, Carbon Dioxide Level 27, Anion Gap 9, Blood Urea Nitrogen 21H, Creatinine 0.8, Estimat Glomerular Filtration Rate > 60, Glucose Level 210H, Calcium Level 8.2L, Phosphorus Level 4.0, Magnesium Level 2.3, Total Bilirubin 0.1L, Aspartate Amino Transf (AST/SGOT ) 20, Alanine Aminotransferase (ALT/SGPT) 45, Alkaline Phosphatase 57, C- Reactive Protein, Quantitative 0.6, Total Protein 6.6, Albumin 2.4L, Globulin 4.2, Albumin/Globulin Ratio 0.6L Current Medications Medications (Trade) Dose Ordered Sig/Jaime Route PRN Reason Start Time Stop Time Status Last Admin Dose Admin Acetaminophen (Tylenol) 650 mg Q6H PRN ORAL For Headache 01/24/20 21:45 02/23/20 21:44 Albuterol Sulfate (Proventil MDI) 2 puff Q4H PRN INH Shortness of Breath 01/25/20 02:15 04/24/20 02:14 Amlodipine Besylate (Norvasc) 10 mg DAILY ORAL 01/25/20 09:00 02/24/20 08:59 01/28/20 08:41 Ascorbic Acid (Vitamin C) 500 mg TWICE A DAY ORAL 01/25/20 18:00 02/24/20 17:59 01/28/20 08:41 Aspirin (ASA) 81 mg DAILY ORAL 01/25/20 09:00 03/10/20 08:59 01/28/20 08:41 Azithromycin 500 mg/Dextrose 275 ml @ 275 mls/hr Q24HRS IV 01/25/20 14:00 01/31/20 14:59 01/27/20 13:02 Ceftriaxone Sodium 1 gm/ Dextrose 55 ml @ 110 mls/hr Q24H IVPB 01/25/20 00:00 02/01/20 00:00 01/28/20 00:25 Dexamethasone Sodium Phosphate (Decadron 10mg/ ml Inj) 6 mg Q24H IV 01/27/20 00:00 02/03/20 00:01 9/2/20 00:26 Heparin Sodium (Porcine) (Heparin 5000 units/ml) 5,000 units EVERY 8 HOURS SUBQ 01/25/20 14:00 03/10/20 13:59 01/28/20 06:20 Pantoprazole (Protonix) 40 mg DAILY ORAL 01/25/20 09:00 02/24/20 08:59 01/28/20 08:41 Zinc Sulfate (Zinc Sulfate) 220 mg DAILY ORAL 01/26/20 09:00 04/25/20 08:59 01/28/20 08:41 Assessment/Plan Problems: (1) 2019 novel coronavirus disease (COVID-19) (2) History of asthma (3) Acute bronchitis Assessment/Plan improving CRP is almost normal, Doubt COVID pneumonia Continue Ceftriaxone and Azithromycin -Decadron check sputum respiratory treatment titrate fio2 to sat of 92% f/u ID recommendations dvt prophylaxis Saqib Obando MD Jan 28, 2020 12:29
[2020-01-28] MEDS: Azithromycin 500 MG in D5W 275 ML IV SCH (14:08)
--- NOTE | 2020-01-28 14:16 | Infectious Diseases Prog Note ---
Assessment/Plan Assessment: COVID19 Pneumonia Acute hypoxic resp failure- on/off 2l NC -01/27 CXR: Streaky peripheral infiltrates in peribronchovascular distribution are again demonstrated. -01/25 LDH 290, ferritin 248m CRP 3.0, D-dimer 3.34 -01/24 CXR: Mild, peripheral patchy airspace opacity which should be correlated with CT scan if there is concern for viral pneumonitis.No focal or lobar infiltrate. No pneumothorax. No pleural effusion appeared -01/23 rapid COVID PCR + Afebrile Leukocytosis (on steroids); improving -u/a wbc 40-60, nit neg, leuk +2; ucx 10-20 mixed gram positive organisms Asthma HTN gastritis sp cholecystectomy arthritis Plan: -Continue Ceftriaxone and Azithromycin #4/5 -Decadron #4 -Requested remdesevir- however was denied by [facility] COVID task force committee per current protocol --seems to be improving- on/off requiring O2- will continue to monitor -f/u cx -Monitor CBC/CMP, temperatures -COVID19 isolation Thank you for this consultation. Will continue to follow along with you. Discussed with RN and pharmacy staff. Subjective Allergies: Coded Allergies: No Known Allergies (Unverified , 01/24/20) afebrile on/off 2l NC inflammatory markers improving Objective Last 24 Hour Vital Signs Date Time Temp Pulse Resp B/P (MAP) Pulse Ox O2 Delivery O2 Flow Rate FiO2 01/28/20 12:00 56 01/28/20 12:00 97.3 53 18 129/61 (83) 93 01/28/20 09:00 Room Air 01/28/20 08:41 64 138/68 01/28/20 08:00 69 01/28/20 08:00 98.6 64 18 138/68 (91) 93 01/28/20 04:00 45 01/28/20 04:00 97.5 52 16 151/67 (95) 92 01/28/20 00:00 97.5 50 16 143/60 (87) 92 01/28/20 00:00 60 01/27/20 21:00 Room Air 01/27/20 20:00 55 01/27/20 20:00 97.7 54 20 138/64 (88) 93 01/27/20 16:00 53 01/27/20 16:00 98.0 60 18 135/55 (81) 93 Height (Feet): 5 Height (Inches): 5.00 Weight (Pounds): 185 GENERAL: Patient is well-developed, well-nourished female, in no apparent distress. HEENT: Eyes, pupils are equal and responsive to light and accommodation. Extraocular movements are intact. NECK: Supple without lymphadenopathy. CHEST: Crackles heard in the bilateral bases. Otherwise, without wheezes. CARDIOVASCULAR: Regular rhythm and rate. S1, S2 normal without murmurs, rubs, or gallops. ABDOMEN: Soft, nontender, nondistended. Positive bowel sounds. EXTREMITIES: Negative for clubbing, cyanosis, or edema. Laboratory Tests Test 01/28/20 04:30 White Blood Count 11.2 K/UL (4.8-10.8) H Red Blood Count 4.81 M/UL (4.20-5.40) Hemoglobin 13.8 G/DL (12.0-16.0) Hematocrit 40.6 % (37.0-47.0) Mean Corpuscular Volume 84 FL (80-99) Mean Corpuscular Hemoglobin 28.6 PG (27.0-31.0) Mean Corpuscular Hemoglobin Concent 33.9 G/DL (32.0-36.0) Red Cell Distribution Width 13.3 % (11.6-14.8) Platelet Count 239 K/UL (150-450) Mean Platelet Volume 5.0 FL (6.5-10.1) L Neutrophils (%) (Auto) % (45.0-75.0) Lymphocytes (%) (Auto) % (20.0-45.0) Monocytes (%) (Auto) % (1.0-10.0) Eosinophils (%) (Auto) % (0.0-3.0) Basophils (%) (Auto) % (0.0-2.0) Differential Total Cells Counted 100 Neutrophils % (Manual) 85 % (45-75) H Lymphocytes % (Manual) 14 % (20-45) L Monocytes % (Manual) 1 % (1-10) Eosinophils % (Manual) 0 % (0-3) Basophils % (Manual) 0 % (0-2) Band Neutrophils 0 % (0-8) Platelet Estimate Adequate Platelet Morphology Normal Red Blood Cell Morphology Normal Erythrocyte Sedimentation Rate 37 MM/HR (0-30) H Sodium Level 141 MMOL/L (136-145) Potassium Level 4.1 MMOL/L (3.5-5.1) Chloride Level 105 MMOL/L (98-107) Carbon Dioxide Level 27 MMOL/L (21-32) Anion Gap 9 mmol/L (5-15) Blood Urea Nitrogen 21 mg/dL (7-18) H Creatinine 0.8 MG/DL (0.55-1.30) Estimat Glomerular Filtration Rate > 60 mL/min (>60) Glucose Level 210 MG/DL (74-106) H Calcium Level 8.2 MG/DL (8.5-10.1) L Phosphorus Level 4.0 MG/DL (2.5-4.9) Magnesium Level 2.3 MG/DL (1.8-2.4) Total Bilirubin 0.1 MG/DL (0.2-1.0) L Aspartate Amino Transf (AST/SGOT) 20 U/L (15-37) Alanine Aminotransferase (ALT/SGPT) 45 U/L (12-78) Alkaline Phosphatase 57 U/L (46-116) C-Reactive Protein, Quantitative 0.6 mg/dL (0.00-0.90) Total Protein 6.6 G/DL (6.4-8.2) Albumin 2.4 G/DL (3.4-5.0) L Globulin 4.2 g/dL Albumin/Globulin Ratio 0.6 (1.0-2.7) L Current Medications Medications (Trade) Dose Ordered Sig/Jaime Route PRN Reason Start Time Stop Time Status Last Admin Dose Admin Acetaminophen (Tylenol) 650 mg Q6H PRN ORAL For Headache 01/24/20 21:45 02/23/20 21:44 Albuterol Sulfate (Proventil MDI) 2 puff Q4H PRN INH Shortness of Breath 01/25/20 02:15 04/24/20 02:14 Amlodipine Besylate (Norvasc) 10 mg DAILY ORAL 01/25/20 09:00 02/24/20 08:59 01/28/20 08:41 Ascorbic Acid (Vitamin C) 500 mg TWICE A DAY ORAL 01/25/20 18:00 02/24/20 17:59 01/28/20 08:41 Aspirin (ASA) 81 mg DAILY ORAL 01/25/20 09:00 03/10/20 08:59 01/28/20 08:41 Azithromycin 500 mg/Dextrose 275 ml @ 275 mls/hr Q24HRS IV 01/25/20 14:00 01/31/20 14:59 01/28/20 14:08 Ceftriaxone Sodium 1 gm/ Dextrose 55 ml @ 110 mls/hr Q24H IVPB 01/25/20 00:00 02/01/20 00:00 01/28/20 00:25 Dexamethasone Sodium Phosphate (Decadron 10mg/ ml Inj) 6 mg Q24H IV 01/27/20 00:00 02/03/20 00:01 01/28/20 00:26 Heparin Sodium (Porcine) (Heparin 5000 units/ml) 5,000 units EVERY 8 HOURS SUBQ 01/25/20 14:00 03/10/20 13:59 01/28/20 14:09 Pantoprazole (Protonix) 40 mg DAILY ORAL 01/25/20 09:00 02/24/20 08:59 01/28/20 08:41 Zinc Sulfate (Zinc Sulfate) 220 mg DAILY ORAL 01/26/20 09:00 04/25/20 08:59 01/28/20 08:41 Nevaeh Dalal M.D. Jan 28, 2020 14:16
--- NOTE | 2020-01-28 14:30 | NUR ---
CASE MANAGEMENT:REVIEW 01/28/20 SI: COVID PNA 97.3 56 18 129/61 93% ON RA WBC+11.2 ESR+37 BUN+21 GLUCOSE+210 IS: IV DECADRON Q24 IV AZITHROMYCIN Q24 IV ROCEPHIN Q24 ZINC PO QD HEPARIN SQ Q8HRS : TELEMETRY STATUS DCP: FROM HOME
--- NOTE | 2020-01-28 14:46 | NUR ---
RADIOLOGY DEPT., CHEST X-RAY DONE BY JOHNNIE STEELE.JOHN
--- NOTE | 2020-01-28 14:46 | NUR ---
INSURANCE CLINCALS AND INTERQUAL FAXED TO [facility] T:[phone] F: [phone] REF#[id number] T [phone]
[2020-01-28 16:00] VITALS: BP 135/54
--- NOTE | 2020-01-28 17:26 | Internal Med Progress Note ---
Subjective Physician Name Leroy Elias Attending Physician Leroy Elias MD Current Medications Medications (Trade) Dose Ordered Sig/Jaime Route PRN Reason Start Time Stop Time Status Last Admin Dose Admin Acetaminophen (Tylenol) 650 mg Q6H PRN ORAL For Headache 01/24/20 21:45 02/23/20 21:44 Albuterol Sulfate (Proventil MDI) 2 puff Q4H PRN INH Shortness of Breath 01/25/20 02:15 04/24/20 02:14 Amlodipine Besylate (Norvasc) 10 mg DAILY ORAL 01/25/20 09:00 02/24/20 08:59 01/28/20 08:41 Ascorbic Acid (Vitamin C) 500 mg TWICE A DAY ORAL 01/25/20 18:00 02/24/20 17:59 01/28/20 08:41 Aspirin (ASA) 81 mg DAILY ORAL 01/25/20 09:00 03/10/20 08:59 01/28/20 08:41 Azithromycin 500 mg/Dextrose 275 ml @ 275 mls/hr Q24HRS IV 01/25/20 14:00 01/31/20 14:59 01/28/20 14:08 Ceftriaxone Sodium 1 gm/ Dextrose 55 ml @ 110 mls/hr Q24H IVPB 01/25/20 00:00 02/01/20 00:00 01/28/20 00:25 Dexamethasone Sodium Phosphate (Decadron 10mg/ ml Inj) 6 mg Q24H IV 01/27/20 00:00 02/03/20 00:01 01/28/20 00:26 Heparin Sodium (Porcine) (Heparin 5000 units/ml) 5,000 units EVERY 8 HOURS SUBQ 01/25/20 14:00 03/10/20 13:59 01/28/20 14:09 Pantoprazole (Protonix) 40 mg DAILY ORAL 01/25/20 09:00 02/24/20 08:59 01/28/20 08:41 Zinc Sulfate (Zinc Sulfate) 220 mg DAILY ORAL 01/26/20 09:00 04/25/20 08:59 01/28/20 08:41 Allergies: Coded Allergies: No Known Allergies (Unverified , 01/24/20) Subjective alert, awake, responsive, report less shortness of breath, + dry cough, denies chest pain. Objective Last Vital Signs Date Time Temp Pulse Resp B/P (MAP) Pulse Ox O2 Delivery O2 Flow Rate FiO2 01/28/20 12:00 56 01/28/20 12:00 97.3 18 129/61 (83) 93 01/28/20 09:00 Room Air 01/26/20 21:00 2.0 Laboratory Tests Test 01/28/20 04:30 White Blood Count 11.2 K/UL (4.8-10.8) H Red Blood Count 4.81 M/UL (4.20-5.40) Hemoglobin 13.8 G/DL (12.0-16.0) Hematocrit 40.6 % (37.0-47.0) Mean Corpuscular Volume 84 FL (80-99) Mean Corpuscular Hemoglobin 28.6 PG (27.0-31.0) Mean Corpuscular Hemoglobin Concent 33.9 G/DL (32.0-36.0) Red Cell Distribution Width 13.3 % (11.6-14.8) Platelet Count 239 K/UL (150-450) Mean Platelet Volume 5.0 FL (6.5-10.1) L Neutrophils (%) (Auto) % (45.0-75.0) Lymphocytes (%) (Auto) % (20.0-45.0) Monocytes (%) (Auto) % (1.0-10.0) Eosinophils (%) (Auto) % (0.0-3.0) Basophils (%) (Auto) % (0.0-2.0) Differential Total Cells Counted 100 Neutrophils % (Manual) 85 % (45-75) H Lymphocytes % (Manual) 14 % (20-45) L Monocytes % (Manual) 1 % (1-10) Eosinophils % (Manual) 0 % (0-3) Basophils % (Manual) 0 % (0-2) Band Neutrophils 0 % (0-8) Platelet Estimate Adequate Platelet Morphology Normal Red Blood Cell Morphology Normal Erythrocyte Sedimentation Rate 37 MM/HR (0-30) H Sodium Level 141 MMOL/L (136-145) Potassium Level 4.1 MMOL/L (3.5-5.1) Chloride Level 105 MMOL/L (98-107) Carbon Dioxide Level 27 MMOL/L (21-32) Anion Gap 9 mmol/L (5-15) Blood Urea Nitrogen 21 mg/dL (7-18) H Creatinine 0.8 MG/DL (0.55-1.30) Estimat Glomerular Filtration Rate > 60 mL/min (>60) Glucose Level 210 MG/DL (74-106) H Calcium Level 8.2 MG/DL (8.5-10.1) L Phosphorus Level 4.0 MG/DL (2.5-4.9) Magnesium Level 2.3 MG/DL (1.8-2.4) Total Bilirubin 0.1 MG/DL (0.2-1.0) L Aspartate Amino Transf (AST/SGOT) 20 U/L (15-37) Alanine Aminotransferase (ALT/SGPT) 45 U/L (12-78) Alkaline Phosphatase 57 U/L (46-116) C-Reactive Protein, Quantitative 0.6 mg/dL (0.00-0.90) Total Protein 6.6 G/DL (6.4-8.2) Albumin 2.4 G/DL (3.4-5.0) L Globulin 4.2 g/dL Albumin/Globulin Ratio 0.6 (1.0-2.7) L Intake and Output 01/27/20 01/28/20 19:00 07:00 Intake Total 720 ml 840 ml Balance 720 ml 840 ml Intake Oral 720 ml 840 ml # Voids 4 4 # Bowel Movements 2 1 Objective General: No acute distress, awake and alert HEENT: NCAT, sclera anicteric, PERRL, EOMI. Neck: Supple, no significant jugular venous distention, Lungs: fair inspiratory effort, decreased air at the base no Wheeze or Rales. Heart: Regular rate and rhythm, normal S1/S2, no murmurs. Abdomen: soft, nontender, nondistended. Normoactive bowel sounds, morbid obesity. / Rectal: Refused and deferred. Extremities: No Cyanosis , clubbing or edema. Neuro: A&O x 3, Able to move all extremities Skin: warm, no rashes or lesions Psych: Normal mood and affect Assessment/Plan Assessment/Plan ASSESSMENT: This is a 74-year-old female. 1. COVID-19 positive. 2. Bilateral pneumonia. 3. Shortness of breath. 4. Acute Hypoxia respiratory failure. 5. Asthma. 6. Hypertension. 7. Gastritis. 8. Arthritis. TREATMENT: 1. COVID-19 pneumonia. An Infectious Disease consultation has been obtained with Dr. Lau. Patient has also been receiving albuterol nebulized q.4h. A Pulmonary consultation has been obtained with Dr. Saqib Obando. Follow recommendations of Infectious Disease and Pulmonary. 2. Hypertension. Continue amlodipine and benazepril as above. 3. Gastritis. Continue omeprazole as above. 4. Arthritis. Abx: Rocephin IV and azithromycin IV DVT prophylaxis: Heparin SQ CODE STATUS: Full Code Leroy Elias MD Jan 28, 2020 17:26
--- NOTE | 2020-01-28 19:13 | NUR ---
NURSE HAND-OFF REPORT: Important Events on Shift:NA Patient Status: A/O x4 Diet: Cardiac Pending Orders: NA Pending Results/Labs:Morning labs Pending MD notification:NA Latest Vital Signs: Temperature 97.3 , Pulse 65 , B/P 135 /54 , Respiratory Rate 18 , O2 SAT 96 , Room Air, O2 Flow Rate 2.0 . Vital Sign Comment: Stable EKG Rhythm: Sinus Rhythm Rhythm change?: N MD Notified?: N - MD Response: Latest Rowe Fall Score: 35 Fall Risk: Medium Risk Safety Measures: Call light Within Reach, Bed Alarm Zone 2, Side Rails Side Rails x2, Bed position Low and Locked. Fall Precautions: Yellow Socks Yellow Gown Patient Fall Education Report given to Eddi/RNJerson/RN.
--- NOTE | 2020-01-28 19:22 | NUR ---
NURSE NOTES: Received pt from WILBER Bentley. Pt is awake, alert and oriented x4 and resting in bed. Pt is on cardiac monitoring running SR and is asymptomatic. Pt coughs occasionally and shows no signs of respiratory distress on room air. Pt has LFA 22G SL patent dry and intact. Bed is locked and in lowest position, call light within reach. Will continue to monitor.
[2020-01-28 20:00] VITALS: BP 136/66
[2020-01-29] VITALS: BP 139/62
[2020-01-29] MEDS: dexAMETHasone 10mg/ml Inj IV SCH (00:17)
[2020-01-29] MEDS: cefTRIAXone 1 GM in D5W 55 ML IVPB SCH (00:19)
[2020-01-29 04:00] VITALS: BP 134/67
[2020-01-29] MEDS: Heparin 5000 units/ml inj SUBQ SCH ×3 (05:55→21:57)
--- NOTE | 2020-01-29 07:14 | NUR ---
NURSE NOTES: Received report from Jerson/RN, Observed patient awake, having breakfast in bed. On room air, No acute distress/SOB noted. IV site patent and intact. Bed in low position and locked, Call light and bedside table within reach. Encouraged to use call light when needed. Will continue plan of care.
[2020-01-29 07:15] LABS: ALANINE AMINOTRANSFERASE 47 U/L (12-78); ALBUMIN 2.3 G/DL (3.4-5.0); ALBUMIN/GLOBULIN RATIO 0.6 (1.0-2.7); ALKALINE PHOSPHATASE 52 U/L (46-116); ANION GAP 9 mmol/L (5-15); ASPARTATE AMINO TRANSFERASE 21 U/L (15-37); BILIRUBIN,TOTAL 0.2 MG/DL (0.2-1.0); BLOOD UREA NITROGEN 23 mg/dL (7-18); CALCIUM 8.5 MG/DL (8.5-10.1); CARBON DIOXIDE 26 MMOL/L (21-32); CHLORIDE 106 MMOL/L (98-107); CREATININE 0.8 MG/DL (0.55-1.30); POTASSIUM 4.1 MMOL/L (3.5-5.1); SODIUM 141 MMOL/L (136-145)
[2020-01-29 07:22] LABS: HEMOGLOBIN 14.4 G/DL (12.0-16.0); MEAN CORPUSCULAR VOLUME 84 FL (80-99); PLATELET COUNT 254 K/UL (150-450); RED BLOOD COUNT 5.12 M/UL (4.20-5.40); RED CELL DISTRIBUTION WIDTH 13.4 % (11.6-14.8); WHITE BLOOD COUNT 11.9 K/UL (4.8-10.8)
--- NOTE | 2020-01-29 07:37 | NUR ---
NURSE HAND-OFF REPORT: Important Events on Shift:Labs drawn and pending results Patient Status: Stable Diet: Cardiac Pending Orders: Chest XR Pending Results/Labs:CXR, AM Labs Latest Vital Signs: Temperature 97.7 , Pulse 50 , B/P 134 /67 , Respiratory Rate 19 , O2 SAT 96 , Room Air, O2 Flow Rate 2.0 . Vital Sign Comment: VSS EKG Rhythm: Sinus Rhythm Rhythm change?: N Latest Rowe Fall Score: 35 Fall Risk: Medium Risk Safety Measures: Call light Within Reach, Bed Alarm Zone 2, Side Rails Side Rails x2, Bed position Low and Locked. Fall Precautions: Yellow Socks Yellow Gown Patient Fall Education Report given to WILBER Bentley.
[2020-01-29 08:00] VITALS: BP 136/61
[2020-01-29] MEDS: Zinc Sulfate 220mg ORAL SCH (08:55)
[2020-01-29] MEDS: Aspirin Baby 81mg ORAL SCH (08:55)
[2020-01-29] MEDS: Ascorbic Acid 500mg tab ORAL SCH ×2 (08:55→18:00)
[2020-01-29 12:00] VITALS: BP 139/65
--- NOTE | 2020-01-29 13:30 | NUR ---
NURSE NOTES: Contacted Dr. Dalal for clearance, Doctor wants to know, how many bags of Azithromycin and Rocephin patient got, Unable to check because [employer] was down all afternoon.
[2020-01-29] MEDS: Azithromycin 500 MG in D5W 275 ML IV SCH (14:00)
[2020-01-29 16:00] VITALS: BP 131/71
--- NOTE | 2020-01-29 19:22 | NUR ---
NURSE HAND-OFF REPORT: Important Events on Shift:NA Patient Status: A/O x4 Diet: Cardiac Pending Orders: Need Clearance from ID Pending Results/Labs:Morning labs Pending MD notification:NA Latest Vital Signs: Temperature 98.6 , Pulse 64 , B/P 131 /71 , Respiratory Rate 20 , O2 SAT 98 , Room Air, O2 Flow Rate 2.0 . Vital Sign Comment: Stable EKG Rhythm: Sinus Rhythm Rhythm change?: N MD Notified?: N - MD Response: Latest Rowe Fall Score: 35 Fall Risk: Medium Risk Safety Measures: Call light Within Reach, Bed Alarm Zone 2, Side Rails Side Rails x2, Bed position Low and Locked. Fall Precautions: Yellow Socks Yellow Gown Patient Fall Education Report given to Delfina/WILBER.
--- NOTE | 2020-01-29 19:26 | Pulmonology Progress Note ---
Subjective ROS Limited/Unobtainable: No Interval Events: feeling better HEENT: Repors: no symptoms Respiratory: Reports: no symptoms Allergies: Coded Allergies: No Known Allergies (Unverified , 01/24/20) Objective Last 24 Hour Vital Signs Date Time Temp Pulse Resp B/P (MAP) Pulse Ox O2 Delivery O2 Flow Rate FiO2 01/29/20 16:00 98.6 64 20 131/71 (91) 98 01/29/20 16:00 61 01/29/20 12:00 57 01/29/20 12:00 96.8 54 19 139/65 (89) 96 01/29/20 09:00 Room Air 01/29/20 08:55 74 136/61 01/29/20 08:00 43 01/29/20 08:00 96.7 74 20 136/61 (86) 96 01/29/20 04:00 97.7 52 19 134/67 (89) 96 01/29/20 04:00 50 01/29/20 00:00 98.6 53 19 139/62 (87) 96 01/29/20 00:00 45 01/28/20 21:00 Room Air 01/28/20 20:00 53 01/28/20 20:00 99.2 50 19 136/66 (89) 97 Intake and Output 01/28/20 01/29/20 19:00 07:00 Intake Total 730 ml Balance 730 ml Intake Oral 730 ml # Voids 5 3 # Bowel Movements 1 General Appearance: WD/WN HEENT: normocephalic, atraumatic Respiratory: chest wall non-tender, lungs clear, expiratory wheezing Cardiovascular: normal rate Abdomen: normal bowel sounds, soft, non tender, non distended Genitourinary: normal external genitalia Skin: no rash, no ulcers 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 Lymphatic: no neck adenopathy Laboratory Tests 01/29/20 04:00: White Blood Count 11.9H, Red Blood Count 5.12, Hemoglobin 14.4, Hematocrit 43.0 , Mean Corpuscular Volume 84, Mean Corpuscular Hemoglobin 28.2, Mean Corpuscular Hemoglobin Concent 33.5, Red Cell Distribution Width 13.4, Platelet Count 254, Mean Platelet Volume 4.8L, Neutrophils (%) (Auto) , Lymphocytes (%) ( Auto) , Monocytes (%) (Auto) , Eosinophils (%) (Auto) , Basophils (%) (Auto) , Differential Total Cells Counted 100, Neutrophils % (Manual) 91H, Lymphocytes % (Manual) 5L, Monocytes % (Manual) 4, Eosinophils % (Manual) 0, Basophils % ( Manual) 0, Band Neutrophils 0, Platelet Estimate Adequate, Platelet Morphology Normal, Red Blood Cell Morphology Normal, Erythrocyte Sedimentation Rate 46H, Sodium Level 141, Potassium Level 4.1, Chloride Level 106, Carbon Dioxide Level 26, Anion Gap 9, Blood Urea Nitrogen 23H, Creatinine 0.8, Estimat Glomerular Filtration Rate > 60, Glucose Level 221H, Calcium Level 8.5, Phosphorus Level 3.0, Magnesium Level 2.3, Total Bilirubin 0.2, Aspartate Amino Transf (AST/SGOT ) 21, Alanine Aminotransferase (ALT/SGPT) 47, Alkaline Phosphatase 52, C- Reactive Protein, Quantitative < 0.4, Total Protein 6.4, Albumin 2.3L, Globulin 4.1, Albumin/Globulin Ratio 0.6L Current Medications Medications (Trade) Dose Ordered Sig/Jaime Route PRN Reason Start Time Stop Time Status Last Admin Dose Admin Acetaminophen (Tylenol) 650 mg Q6H PRN ORAL For Headache 01/24/20 21:45 02/23/20 21:44 Albuterol Sulfate (Proventil MDI) 2 puff Q4H PRN INH Shortness of Breath 01/25/20 02:15 04/24/20 02:14 Amlodipine Besylate (Norvasc) 10 mg DAILY ORAL 01/25/20 09:00 02/24/20 08:59 01/29/20 08:55 Ascorbic Acid (Vitamin C) 500 mg TWICE A DAY ORAL 01/25/20 18:00 02/24/20 17:59 01/29/20 18:00 Aspirin (ASA) 81 mg DAILY ORAL 01/25/20 09:00 03/10/20 08:59 01/29/20 08:55 Azithromycin 500 mg/Dextrose 275 ml @ 275 mls/hr Q24HRS IV 01/25/20 14:00 01/31/20 14:59 01/29/20 14:00 Ceftriaxone Sodium 1 gm/ Dextrose 55 ml @ 110 mls/hr Q24H IVPB 01/25/20 00:00 02/01/20 00:00 01/29/20 00:19 Dexamethasone Sodium Phosphate (Decadron 10mg/ ml Inj) 6 mg Q24H IV 01/27/20 00:00 02/03/20 00:01 01/29/20 00:17 Heparin Sodium (Porcine) (Heparin 5000 units/ml) 5,000 units EVERY 8 HOURS SUBQ 01/25/20 14:00 03/10/20 13:59 01/29/20 14:00 Pantoprazole (Protonix) 40 mg DAILY ORAL 01/25/20 09:00 02/24/20 08:59 01/29/20 08:54 Zinc Sulfate (Zinc Sulfate) 220 mg DAILY ORAL 01/26/20 09:00 04/25/20 08:59 01/29/20 08:55 Assessment/Plan Problems: (1) 2019 novel coronavirus disease (COVID-19) (2) History of asthma (3) Acute bronchitis Assessment/Plan improving CRP is almost normal, Doubt COVID pneumonia Continue Ceftriaxone and Azithromycin -Decadron check sputum respiratory treatment titrate fio2 to sat of 92% f/u ID recommendations dvt prophylaxis Saqib Obando MD Jan 29, 2020 19:25
[2020-01-29 20:00] VITALS: BP 141/70
--- NOTE | 2020-01-29 20:32 | NUR ---
NURSE NOTES: Received patient from WILBER Bentley. Patient awake, alert and oriented. Able to verbalize needs. IV intact and flushed. No IVF running at this time. On room air, saturating at 96-98%. With 2L oxygen per nasal cannula PRN. Endorsed that patient's awaiting clearance from ID doctor for discharge. Bed in lowest position, brakes engaged and bed alarm on. Call light placed within reach. Will continue to monitor.
--- NOTE | 2020-01-29 20:35 | Infectious Diseases Prog Note ---
Assessment/Plan Assessment: COVID19 Pneumonia Acute hypoxic resp failure- on/off 2l NC -01/27 CXR: Streaky peripheral infiltrates in peribronchovascular distribution are again demonstrated. -01/25 LDH 290, ferritin 248m CRP 3.0, D-dimer 3.34 -01/24 CXR: Mild, peripheral patchy airspace opacity which should be correlated with CT scan if there is concern for viral pneumonitis.No focal or lobar infiltrate. No pneumothorax. No pleural effusion appeared -01/23 rapid COVID PCR + Afebrile Leukocytosis (on steroids); improving -u/a wbc 40-60, nit neg, leuk +2; ucx 10-20 mixed gram positive organisms Asthma HTN gastritis sp cholecystectomy arthritis Plan: -Continue Ceftriaxone and Azithromycin #5/5 -Decadron #5 -Requested remdesevir- however was denied [place] [facility] [place] per current protocol --seems to be improving- on/off requiring O2- will continue to monitor -f/u cx -Monitor CBC/CMP, temperatures -COVID19 isolation Thank you for this consultation. Will continue to follow along with you. Discussed with RN and pharmacy staff. Subjective Allergies: Coded Allergies: No Known Allergies (Unverified , 01/24/20) +late entry+ afebrile at RA discharge planning Objective Last 24 Hour Vital Signs Date Time Temp Pulse Resp B/P (MAP) Pulse Ox O2 Delivery O2 Flow Rate FiO2 01/29/20 20:00 97.7 56 19 141/70 (93) 98 01/29/20 16:00 98.6 64 20 131/71 (91) 98 01/29/20 16:00 61 01/29/20 12:00 57 01/29/20 12:00 96.8 54 19 139/65 (89) 96 01/29/20 09:00 Room Air 01/29/20 08:55 74 136/61 01/29/20 08:00 43 01/29/20 08:00 96.7 74 20 136/61 (86) 96 01/29/20 04:00 97.7 52 19 134/67 (89) 96 01/29/20 04:00 50 01/29/20 00:00 98.6 53 19 139/62 (87) 96 01/29/20 00:00 45 9/2/20 21:00 Room Air Height (Feet): 5 Height (Inches): 5.00 Weight (Pounds): 185 GENERAL: Patient is well-developed, well-nourished female, in no apparent distress. HEENT: Eyes, pupils are equal and responsive to light and accommodation. Extraocular movements are intact. NECK: Supple without lymphadenopathy. CHEST: Crackles heard in the bilateral bases. Otherwise, without wheezes. CARDIOVASCULAR: Regular rhythm and rate. S1, S2 normal without murmurs, rubs, or gallops. ABDOMEN: Soft, nontender, nondistended. Positive bowel sounds. EXTREMITIES: Negative for clubbing, cyanosis, or edema. Laboratory Tests Test 01/29/20 04:00 White Blood Count 11.9 K/UL (4.8-10.8) H Red Blood Count 5.12 M/UL (4.20-5.40) Hemoglobin 14.4 G/DL (12.0-16.0) Hematocrit 43.0 % (37.0-47.0) Mean Corpuscular Volume 84 FL (80-99) Mean Corpuscular Hemoglobin 28.2 PG (27.0-31.0) Mean Corpuscular Hemoglobin Concent 33.5 G/DL (32.0-36.0) Red Cell Distribution Width 13.4 % (11.6-14.8) Platelet Count 254 K/UL (150-450) Mean Platelet Volume 4.8 FL (6.5-10.1) L Neutrophils (%) (Auto) % (45.0-75.0) Lymphocytes (%) (Auto) % (20.0-45.0) Monocytes (%) (Auto) % (1.0-10.0) Eosinophils (%) (Auto) % (0.0-3.0) Basophils (%) (Auto) % (0.0-2.0) Differential Total Cells Counted 100 Neutrophils % (Manual) 91 % (45-75) H Lymphocytes % (Manual) 5 % (20-45) L Monocytes % (Manual) 4 % (1-10) Eosinophils % (Manual) 0 % (0-3) Basophils % (Manual) 0 % (0-2) Band Neutrophils 0 % (0-8) Platelet Estimate Adequate Platelet Morphology Normal Red Blood Cell Morphology Normal Erythrocyte Sedimentation Rate 46 MM/HR (0-30) H Sodium Level 141 MMOL/L (136-145) Potassium Level 4.1 MMOL/L (3.5-5.1) Chloride Level 106 MMOL/L (98-107) Carbon Dioxide Level 26 MMOL/L (21-32) Anion Gap 9 mmol/L (5-15) Blood Urea Nitrogen 23 mg/dL (7-18) H Creatinine 0.8 MG/DL (0.55-1.30) Estimat Glomerular Filtration Rate > 60 mL/min (>60) Glucose Level 221 MG/DL (74-106) H Calcium Level 8.5 MG/DL (8.5-10.1) Phosphorus Level 3.0 MG/DL (2.5-4.9) Magnesium Level 2.3 MG/DL (1.8-2.4) Total Bilirubin 0.2 MG/DL (0.2-1.0) Aspartate Amino Transf (AST/SGOT) 21 U/L (15-37) Alanine Aminotransferase (ALT/SGPT) 47 U/L (12-78) Alkaline Phosphatase 52 U/L (46-116) C-Reactive Protein, Quantitative < 0.4 mg/dL (0.00-0.90) Total Protein 6.4 G/DL (6.4-8.2) Albumin 2.3 G/DL (3.4-5.0) L Globulin 4.1 g/dL Albumin/Globulin Ratio 0.6 (1.0-2.7) L Current Medications Medications (Trade) Dose Ordered Sig/Jaime Route PRN Reason Start Time Stop Time Status Last Admin Dose Admin Acetaminophen (Tylenol) 650 mg Q6H PRN ORAL For Headache 01/24/20 21:45 02/23/20 21:44 Albuterol Sulfate (Proventil MDI) 2 puff Q4H PRN INH Shortness of Breath 01/25/20 02:15 04/24/20 02:14 Amlodipine Besylate (Norvasc) 10 mg DAILY ORAL 01/25/20 09:00 02/24/20 08:59 01/29/20 08:55 Ascorbic Acid (Vitamin C) 500 mg TWICE A DAY ORAL 01/25/20 18:00 02/24/20 17:59 01/29/20 18:00 Aspirin (ASA) 81 mg DAILY ORAL 01/25/20 09:00 03/10/20 08:59 01/29/20 08:55 Azithromycin 500 mg/Dextrose 275 ml @ 275 mls/hr Q24HRS IV 01/25/20 14:00 01/31/20 14:59 01/29/20 14:00 Ceftriaxone Sodium 1 gm/ Dextrose 55 ml @ 110 mls/hr Q24H IVPB 01/25/20 00:00 02/01/20 00:00 01/29/20 00:19 Dexamethasone Sodium Phosphate (Decadron 10mg/ ml Inj) 6 mg Q24H IV 01/27/20 00:00 02/03/20 00:01 01/29/20 00:17 Heparin Sodium (Porcine) (Heparin 5000 units/ml) 5,000 units EVERY 8 HOURS SUBQ 01/25/20 14:00 03/10/20 13:59 01/29/20 14:00 Pantoprazole (Protonix) 40 mg DAILY ORAL 01/25/20 09:00 02/24/20 08:59 01/29/20 08:54 Zinc Sulfate (Zinc Sulfate) 220 mg DAILY ORAL 01/26/20 09:00 04/25/20 08:59 01/29/20 08:55 Nevaeh Dalal M.D. Jan 29, 2020 20:35
--- NOTE | 2020-01-29 20:50 | Cardiology Progress Note ---
Assessment/Plan Assessment/Plan 1. Ectopic atrial tachycardia, limited in duration. 2. COVID-19 infection. 3. Possible pneumonia. 4. Acute hypoxemia. 5. Asthma history. 6. Hypertension history. tele sinus , sinus pineda no tachy episodes bp seem fine Subjective ROS Limited/Unobtainable: Yes Objective Last 24 Hour Vital Signs Date Time Temp Pulse Resp B/P (MAP) Pulse Ox O2 Delivery O2 Flow Rate FiO2 01/29/20 20:00 97.7 56 19 141/70 (93) 98 01/29/20 16:00 98.6 64 20 131/71 (91) 98 01/29/20 16:00 61 01/29/20 12:00 57 01/29/20 12:00 96.8 54 19 139/65 (89) 96 01/29/20 09:00 Room Air 01/29/20 08:55 74 136/61 01/29/20 08:00 43 01/29/20 08:00 96.7 74 20 136/61 (86) 96 01/29/20 04:00 97.7 52 19 134/67 (89) 96 01/29/20 04:00 50 01/29/20 00:00 98.6 53 19 139/62 (87) 96 01/29/20 00:00 45 01/28/20 21:00 Room Air Intake and Output 01/28/20 01/29/20 19:00 07:00 Intake Total 730 ml Balance 730 ml Intake Oral 730 ml # Voids 5 3 # Bowel Movements 1 Laboratory Tests Test 01/29/20 04:00 White Blood Count 11.9 K/UL (4.8-10.8) H Red Blood Count 5.12 M/UL (4.20-5.40) Hemoglobin 14.4 G/DL (12.0-16.0) Hematocrit 43.0 % (37.0-47.0) Mean Corpuscular Volume 84 FL (80-99) Mean Corpuscular Hemoglobin 28.2 PG (27.0-31.0) Mean Corpuscular Hemoglobin Concent 33.5 G/DL (32.0-36.0) Red Cell Distribution Width 13.4 % (11.6-14.8) Platelet Count 254 K/UL (150-450) Mean Platelet Volume 4.8 FL (6.5-10.1) L Neutrophils (%) (Auto) % (45.0-75.0) Lymphocytes (%) (Auto) % (20.0-45.0) Monocytes (%) (Auto) % (1.0-10.0) Eosinophils (%) (Auto) % (0.0-3.0) Basophils (%) (Auto) % (0.0-2.0) Differential Total Cells Counted 100 Neutrophils % (Manual) 91 % (45-75) H Lymphocytes % (Manual) 5 % (20-45) L Monocytes % (Manual) 4 % (1-10) Eosinophils % (Manual) 0 % (0-3) Basophils % (Manual) 0 % (0-2) Band Neutrophils 0 % (0-8) Platelet Estimate Adequate Platelet Morphology Normal Red Blood Cell Morphology Normal Erythrocyte Sedimentation Rate 46 MM/HR (0-30) H Sodium Level 141 MMOL/L (136-145) Potassium Level 4.1 MMOL/L (3.5-5.1) Chloride Level 106 MMOL/L (98-107) Carbon Dioxide Level 26 MMOL/L (21-32) Anion Gap 9 mmol/L (5-15) Blood Urea Nitrogen 23 mg/dL (7-18) H Creatinine 0.8 MG/DL (0.55-1.30) Estimat Glomerular Filtration Rate > 60 mL/min (>60) Glucose Level 221 MG/DL (74-106) H Calcium Level 8.5 MG/DL (8.5-10.1) Phosphorus Level 3.0 MG/DL (2.5-4.9) Magnesium Level 2.3 MG/DL (1.8-2.4) Total Bilirubin 0.2 MG/DL (0.2-1.0) Aspartate Amino Transf (AST/SGOT) 21 U/L (15-37) Alanine Aminotransferase (ALT/SGPT) 47 U/L (12-78) Alkaline Phosphatase 52 U/L (46-116) C-Reactive Protein, Quantitative < 0.4 mg/dL (0.00-0.90) Total Protein 6.4 G/DL (6.4-8.2) Albumin 2.3 G/DL (3.4-5.0) L Globulin 4.1 g/dL Albumin/Globulin Ratio 0.6 (1.0-2.7) L Justin Funesun S. MD Jan 29, 2020 20:50
--- NOTE | 2020-01-29 22:59 | Internal Med Progress Note ---
Subjective Physician Name Leroy Elias Attending Physician Leroy Elias MD Current Medications Medications (Trade) Dose Ordered Sig/Jaime Route PRN Reason Start Time Stop Time Status Last Admin Dose Admin Acetaminophen (Tylenol) 650 mg Q6H PRN ORAL For Headache 01/24/20 21:45 02/23/20 21:44 Albuterol Sulfate (Proventil MDI) 2 puff Q4H PRN INH Shortness of Breath 01/25/20 02:15 04/24/20 02:14 Amlodipine Besylate (Norvasc) 10 mg DAILY ORAL 01/25/20 09:00 02/24/20 08:59 01/29/20 08:55 Ascorbic Acid (Vitamin C) 500 mg TWICE A DAY ORAL 01/25/20 18:00 02/24/20 17:59 01/29/20 18:00 Aspirin (ASA) 81 mg DAILY ORAL 01/25/20 09:00 03/10/20 08:59 01/29/20 08:55 Azithromycin 500 mg/Dextrose 275 ml @ 275 mls/hr Q24HRS IV 01/25/20 14:00 01/31/20 14:59 01/29/20 14:00 Ceftriaxone Sodium 1 gm/ Dextrose 55 ml @ 110 mls/hr Q24H IVPB 01/25/20 00:00 02/01/20 00:00 01/29/20 00:19 Dexamethasone Sodium Phosphate (Decadron 10mg/ ml Inj) 6 mg Q24H IV 01/27/20 00:00 02/03/20 00:01 01/29/20 00:17 Heparin Sodium (Porcine) (Heparin 5000 units/ml) 5,000 units EVERY 8 HOURS SUBQ 01/25/20 14:00 03/10/20 13:59 01/29/20 21:57 Pantoprazole (Protonix) 40 mg DAILY ORAL 01/25/20 09:00 02/24/20 08:59 01/29/20 08:54 Zinc Sulfate (Zinc Sulfate) 220 mg DAILY ORAL 01/26/20 09:00 04/25/20 08:59 01/29/20 08:55 Allergies: Coded Allergies: No Known Allergies (Unverified , 01/24/20) Subjective alert, awake, responsive, report less shortness of breath, less dry cough, denies chest pain. IN COVID Isolation room. Objective Last Vital Signs Date Time Temp Pulse Resp B/P (MAP) Pulse Ox O2 Delivery O2 Flow Rate FiO2 01/29/20 20:00 97.7 56 19 141/70 (93) 98 01/29/20 09:00 Room Air 01/26/20 21:00 2.0 Laboratory Tests Test 01/29/20 04:00 White Blood Count 11.9 K/UL (4.8-10.8) H Red Blood Count 5.12 M/UL (4.20-5.40) Hemoglobin 14.4 G/DL (12.0-16.0) Hematocrit 43.0 % (37.0-47.0) Mean Corpuscular Volume 84 FL (80-99) Mean Corpuscular Hemoglobin 28.2 PG (27.0-31.0) Mean Corpuscular Hemoglobin Concent 33.5 G/DL (32.0-36.0) Red Cell Distribution Width 13.4 % (11.6-14.8) Platelet Count 254 K/UL (150-450) Mean Platelet Volume 4.8 FL (6.5-10.1) L Neutrophils (%) (Auto) % (45.0-75.0) Lymphocytes (%) (Auto) % (20.0-45.0) Monocytes (%) (Auto) % (1.0-10.0) Eosinophils (%) (Auto) % (0.0-3.0) Basophils (%) (Auto) % (0.0-2.0) Differential Total Cells Counted 100 Neutrophils % (Manual) 91 % (45-75) H Lymphocytes % (Manual) 5 % (20-45) L Monocytes % (Manual) 4 % (1-10) Eosinophils % (Manual) 0 % (0-3) Basophils % (Manual) 0 % (0-2) Band Neutrophils 0 % (0-8) Platelet Estimate Adequate Platelet Morphology Normal Red Blood Cell Morphology Normal Erythrocyte Sedimentation Rate 46 MM/HR (0-30) H Sodium Level 141 MMOL/L (136-145) Potassium Level 4.1 MMOL/L (3.5-5.1) Chloride Level 106 MMOL/L (98-107) Carbon Dioxide Level 26 MMOL/L (21-32) Anion Gap 9 mmol/L (5-15) Blood Urea Nitrogen 23 mg/dL (7-18) H Creatinine 0.8 MG/DL (0.55-1.30) Estimat Glomerular Filtration Rate > 60 mL/min (>60) Glucose Level 221 MG/DL (74-106) H Calcium Level 8.5 MG/DL (8.5-10.1) Phosphorus Level 3.0 MG/DL (2.5-4.9) Magnesium Level 2.3 MG/DL (1.8-2.4) Total Bilirubin 0.2 MG/DL (0.2-1.0) Aspartate Amino Transf (AST/SGOT) 21 U/L (15-37) Alanine Aminotransferase (ALT/SGPT) 47 U/L (12-78) Alkaline Phosphatase 52 U/L (46-116) C-Reactive Protein, Quantitative < 0.4 mg/dL (0.00-0.90) Total Protein 6.4 G/DL (6.4-8.2) Albumin 2.3 G/DL (3.4-5.0) L Globulin 4.1 g/dL Albumin/Globulin Ratio 0.6 (1.0-2.7) L Intake and Output 01/28/20 01/29/20 19:00 07:00 Intake Total 730 ml Balance 730 ml Intake Oral 730 ml # Voids 5 3 # Bowel Movements 1 Objective General: No acute distress, awake and alert HEENT: NCAT, sclera anicteric, PERRL, EOMI. Neck: Supple, no significant jugular venous distention, Lungs: fair inspiratory effort, decreased air at the base no Wheeze or Rales. Heart: Regular rate and rhythm, normal S1/S2, no murmurs. Abdomen: soft, nontender, nondistended. Normoactive bowel sounds, morbid obesity. / Rectal: Refused and deferred. Extremities: No Cyanosis , clubbing or edema. Neuro: A&O x 3, Able to move all extremities Skin: warm, no rashes or lesions Psych: Normal mood and affect Assessment/Plan Assessment/Plan ASSESSMENT: This is a 74-year-old female. 1. COVID-19 positive. 2. Bilateral pneumonia. 3. Shortness of breath. 4. Acute Hypoxia respiratory failure. 5. Asthma. 6. Hypertension. 7. Gastritis. 8. Arthritis. TREATMENT: 1. COVID-19 pneumonia. An Infectious Disease consultation has been obtained with Dr. Lau. Patient has also been receiving albuterol nebulized q.4h. A Pulmonary consultation has been obtained with Dr. Saqib Obando. Follow recommendations of Infectious Disease and Pulmonary. 2. Hypertension. Continue amlodipine and benazepril as above. 3. Gastritis. Continue omeprazole as above. 4. Arthritis. Continue Ceftriaxone and Azithromycin #4/5 Decadron #4 Requested remdesevir- however was denied by [facility] [place] per current protocol Seems to be improving- on/off requiring O2- will continue to monitor DVT prophylaxis: Heparin SQ CODE STATUS: Full Code DC home in AM Leroy Elias MD Jan 29, 2020 22:59
[2020-01-30] VITALS: BP 125/50
[2020-01-30] MEDS: cefTRIAXone 1 GM in D5W 55 ML IVPB SCH (00:21)
[2020-01-30] MEDS: dexAMETHasone 10mg/ml Inj IV SCH (00:22)
[2020-01-30 04:00] VITALS: BP 145/58
[2020-01-30 04:23] LABS: EOSINOPHILS % (AUTO) 0.2 % (0.0-3.0); HEMATOCRIT 41.5 % (37.0-47.0); HEMOGLOBIN 13.8 G/DL (12.0-16.0); LYMPHOCYTES % (AUTO) 8.4 % (20.0-45.0); MEAN CORPUSCULAR VOLUME 85 FL (80-99); MONOCYTES % (AUTO) 4.6 % (1.0-10.0); NEUTROPHILS % (AUTO) 84.8 % (45.0-75.0); PLATELET COUNT 271 K/UL (150-450); RED BLOOD COUNT 4.91 M/UL (4.20-5.40); RED CELL DISTRIBUTION WIDTH 13.5 % (11.6-14.8); WHITE BLOOD COUNT 13.7 K/UL (4.8-10.8)
[2020-01-30 04:36] LABS: ANION GAP 8 mmol/L (5-15); CARBON DIOXIDE 26 MMOL/L (21-32); CHLORIDE 105 MMOL/L (98-107); CREATININE 0.8 MG/DL (0.55-1.30); POTASSIUM 4.3 MMOL/L (3.5-5.1); SODIUM 139 MMOL/L (136-145)
[2020-01-30] MEDS: Heparin 5000 units/ml inj SUBQ SCH ×2 (05:23→14:00)
[2020-01-30 06:47] LABS: ALANINE AMINOTRANSFERASE 53 U/L (12-78); ALBUMIN 2.3 G/DL (3.4-5.0); ALBUMIN/GLOBULIN RATIO 0.6 (1.0-2.7); ALKALINE PHOSPHATASE 51 U/L (46-116); ASPARTATE AMINO TRANSFERASE 24 U/L (15-37); BILIRUBIN,TOTAL 0.2 MG/DL (0.2-1.0); BLOOD UREA NITROGEN 23 mg/dL (7-18); CALCIUM 8.8 MG/DL (8.5-10.1)
--- NOTE | 2020-01-30 07:27 | NUR ---
NURSE NOTES: Report received from Sariah MERINO. Pt in restroom. White board updated. No complaint of pain or SOB. No distress noted. Bed low and locked. Call light within reach.
--- NOTE | 2020-01-30 07:34 | NUR ---
NURSE HAND-OFF REPORT: Important Events on Shift:[No significant events last night. Awaiting ID clearance for discharge] Patient Status: [FC] Diet: [Cardiac] Pending Orders: [] Pending Results/Labs:[] Pending MD notification:[] Latest Vital Signs: Temperature 97.7 , Pulse 50 , B/P 145 /58 , Respiratory Rate 19 , O2 SAT 98 , Room Air, O2 Flow Rate 2.0 . Vital Sign Comment: [] EKG Rhythm: Sinus Bradycardia Rhythm change?: N MD Notified?: N - MD Response: Latest Rowe Fall Score: 35 Fall Risk: Medium Risk Safety Measures: Call light Within Reach, Bed Alarm Zone 2, Side Rails Side Rails x2, Bed position Low and Locked. Fall Precautions: Yellow Socks Yellow Gown Patient Fall Education Report given to [WILBER Pang].
[2020-01-30 08:00] VITALS: BP 132/64
[2020-01-30] MEDS: Ascorbic Acid 500mg tab ORAL SCH (09:21)
[2020-01-30] MEDS: Zinc Sulfate 220mg ORAL SCH (09:21)
[2020-01-30] MEDS: Aspirin Baby 81mg ORAL SCH (09:22)
[2020-01-30] MEDS ORDERED: D5W 275ml ONE (09:46)
--- NOTE | 2020-01-30 10:11 | NUR ---
RD ASSESSMENT & RECOMMENDATIONS SEE CARE ACTIVITY FOR COMPLETE ASSESSMENT DAILY ESTIMATED NEEDS: Needs based on Pulmonary, obese 64.9kg 25-30 kcals/kg [id number] total kcals 1-1.5 g protein/kg 65-97 g total protein 25-30 mL/kg 4231-4533 total fluid mLs NUTRITION DIAGNOSIS: Altered nutrition related lab values r/t clinical status as evidenced by elevated BG ([phone]), pt noted to be on decadron. CURRENT DIET: Cardiac PO DIET RECOMMENDATIONS: CCHO LOW / CARDIAC diet ADDITIONAL RECOMMENDATIONS: 1) Obtain a standing weight as able 2) Hypoglycemics + bed side BG testing 3) Rec eval of HgA1c
--- NOTE | 2020-01-30 10:20 | NUR ---
NURSE NOTES: Per MELLY Romero to D/C
--- NOTE | 2020-01-30 10:42 | NUR ---
Per Dr. Obando, postpone discharge until he sees pt later today.
--- NOTE | 2020-01-30 11:13 | Infectious Diseases Prog Note ---
Assessment/Plan Assessment: COVID19 Pneumonia Acute hypoxic resp failure- on/off 2l NC -01/27 CXR: Streaky peripheral infiltrates in peribronchovascular distribution are again demonstrated. -01/25 LDH 290, ferritin 248m CRP 3.0, D-dimer 3.34 -01/24 CXR: Mild, peripheral patchy airspace opacity which should be correlated with CT scan if there is concern for viral pneumonitis.No focal or lobar infiltrate. No pneumothorax. No pleural effusion appeared -01/23 rapid COVID PCR + Afebrile Leukocytosis (on steroids); -u/a wbc 40-60, nit neg, leuk +2; ucx 10-20 mixed gram positive organisms Asthma HTN gastritis sp cholecystectomy arthritis Plan: -Decadron # -01/29 Sp Ceftriaxone #6 -01/28 SP Azithromycin #5 -f/u cx -Monitor CBC/CMP, temperatures -COVID19 isolation -ok to dc from ID perspective Thank you for this consultation. Will continue to follow along with you. Discussed with RN and pharmacy staff. Subjective Allergies: Coded Allergies: No Known Allergies (Unverified , 01/24/20) +late entry+ afebrile at RA leukocytosis increased discharge planning Objective Last 24 Hour Vital Signs Date Time Temp Pulse Resp B/P (MAP) Pulse Ox O2 Delivery O2 Flow Rate FiO2 01/30/20 09:21 65 132/64 01/30/20 09:00 Room Air 01/30/20 09:00 65 01/30/20 08:00 97.3 61 20 132/64 (86) 95 01/30/20 04:00 50 01/30/20 04:00 97.7 50 19 145/58 (87) 98 01/30/20 00:00 51 01/30/20 00:00 97.4 54 19 125/50 (75) 96 01/29/20 21:00 Room Air 01/29/20 20:00 97.7 56 19 141/70 (93) 98 01/29/20 20:00 60 01/29/20 16:00 98.6 64 20 131/71 (91) 98 01/29/20 16:00 61 01/29/20 12:00 57 01/29/20 12:00 96.8 54 19 139/65 (89) 96 Height (Feet): 5 Height (Inches): 5.00 Weight (Pounds): 185 GENERAL: Patient is well-developed, well-nourished female, in no apparent distress. HEENT: Eyes, pupils are equal and responsive to light and accommodation. Extraocular movements are intact. NECK: Supple without lymphadenopathy. CHEST: Crackles heard in the bilateral bases. Otherwise, without wheezes. CARDIOVASCULAR: Regular rhythm and rate. S1, S2 normal without murmurs, rubs, or gallops. ABDOMEN: Soft, nontender, nondistended. Positive bowel sounds. EXTREMITIES: Negative for clubbing, cyanosis, or edema. Laboratory Tests Test 01/30/20 04:05 White Blood Count 13.7 K/UL (4.8-10.8) H Red Blood Count 4.91 M/UL (4.20-5.40) Hemoglobin 13.8 G/DL (12.0-16.0) Hematocrit 41.5 % (37.0-47.0) Mean Corpuscular Volume 85 FL (80-99) Mean Corpuscular Hemoglobin 28.1 PG (27.0-31.0) Mean Corpuscular Hemoglobin Concent 33.2 G/DL (32.0-36.0) Red Cell Distribution Width 13.5 % (11.6-14.8) Platelet Count 271 K/UL (150-450) Mean Platelet Volume 4.9 FL (6.5-10.1) L Neutrophils (%) (Auto) 84.8 % (45.0-75.0) H Lymphocytes (%) (Auto) 8.4 % (20.0-45.0) L Monocytes (%) (Auto) 4.6 % (1.0-10.0) Eosinophils (%) (Auto) 0.2 % (0.0-3.0) Basophils (%) (Auto) 2.0 % (0.0-2.0) Sodium Level 139 MMOL/L (136-145) Potassium Level 4.3 MMOL/L (3.5-5.1) Chloride Level 105 MMOL/L (98-107) Carbon Dioxide Level 26 MMOL/L (21-32) Anion Gap 8 mmol/L (5-15) Blood Urea Nitrogen 23 mg/dL (7-18) H Creatinine 0.8 MG/DL (0.55-1.30) Estimat Glomerular Filtration Rate > 60 mL/min (>60) Glucose Level 249 MG/DL (74-106) H Calcium Level 8.8 MG/DL (8.5-10.1) Total Bilirubin 0.2 MG/DL (0.2-1.0) Aspartate Amino Transf (AST/SGOT) 24 U/L (15-37) Alanine Aminotransferase (ALT/SGPT) 53 U/L (12-78) Alkaline Phosphatase 51 U/L (46-116) Pro-B-Type Natriuretic Peptide 96 pg/mL (0-125) Total Protein 6.2 G/DL (6.4-8.2) L Albumin 2.3 G/DL (3.4-5.0) L Globulin 3.9 g/dL Albumin/Globulin Ratio 0.6 (1.0-2.7) L Current Medications Medications (Trade) Dose Ordered Sig/Jaime Route PRN Reason Start Time Stop Time Status Last Admin Dose Admin Acetaminophen (Tylenol) 650 mg Q6H PRN ORAL For Headache 01/24/20 21:45 02/23/20 21:44 Albuterol Sulfate (Proventil MDI) 2 puff Q4H PRN INH Shortness of Breath 01/25/20 02:15 04/24/20 02:14 Amlodipine Besylate (Norvasc) 10 mg DAILY ORAL 01/25/20 09:00 02/24/20 08:59 01/30/20 09:21 Ascorbic Acid (Vitamin C) 500 mg TWICE A DAY ORAL 01/25/20 18:00 02/24/20 17:59 01/30/20 09:21 Aspirin (ASA) 81 mg DAILY ORAL 01/25/20 09:00 03/10/20 08:59 01/30/20 09:22 Azithromycin 500 mg/Dextrose 275 ml @ 275 mls/hr Q24HRS IV 01/25/20 14:00 01/31/20 14:59 01/29/20 14:00 Ceftriaxone Sodium 1 gm/ Dextrose 55 ml @ 110 mls/hr Q24H IVPB 01/25/20 00:00 02/01/20 00:00 01/30/20 00:21 Dexamethasone Sodium Phosphate (Decadron 10mg/ ml Inj) 6 mg Q24H IV 01/27/20 00:00 02/03/20 00:01 01/30/20 00:22 Heparin Sodium (Porcine) (Heparin 5000 units/ml) 5,000 units EVERY 8 HOURS SUBQ 01/25/20 14:00 03/10/20 13:59 01/30/20 05:23 Pantoprazole (Protonix) 40 mg DAILY ORAL 01/25/20 09:00 02/24/20 08:59 01/30/20 09:21 Zinc Sulfate (Zinc Sulfate) 220 mg DAILY ORAL 01/26/20 09:00 04/25/20 08:59 01/30/20 09:21 Nevaeh Dalal M.D. Jan 30, 2020 11:13
[2020-01-30 12:00] VITALS: BP 125/59
--- NOTE | 2020-01-30 12:01 | Pulmonology Progress Note ---
Subjective ROS Limited/Unobtainable: Yes Interval Events: feeling better HEENT: Repors: no symptoms Respiratory: Reports: no symptoms Allergies: Coded Allergies: No Known Allergies (Unverified , 01/24/20) Objective Last 24 Hour Vital Signs Date Time Temp Pulse Resp B/P (MAP) Pulse Ox O2 Delivery O2 Flow Rate FiO2 01/30/20 09:21 65 132/64 01/30/20 09:00 Room Air 01/30/20 09:00 65 01/30/20 08:00 97.3 61 20 132/64 (86) 95 01/30/20 04:00 50 01/30/20 04:00 97.7 50 19 145/58 (87) 98 01/30/20 00:00 51 01/30/20 00:00 97.4 54 19 125/50 (75) 96 01/29/20 21:00 Room Air 01/29/20 20:00 97.7 56 19 141/70 (93) 98 01/29/20 20:00 60 01/29/20 16:00 98.6 64 20 131/71 (91) 98 01/29/20 16:00 61 Intake and Output 01/29/20 01/30/20 19:00 07:00 Intake Total 550 ml 525 ml Balance 550 ml 525 ml Intake Oral 550 ml 470 ml IV Total 55 ml # Voids 2 2 General Appearance: WD/WN HEENT: normocephalic, atraumatic Respiratory: chest wall non-tender, lungs clear, expiratory wheezing Cardiovascular: normal rate Abdomen: normal bowel sounds, soft, non tender, non distended Genitourinary: normal external genitalia Skin: no rash, no ulcers Neurologic: chair caner II-XII grossly normal Lymphatic: no neck adenopathy Laboratory Tests 01/30/20 04:05: White Blood Count 13.7H, Red Blood Count 4.91, Hemoglobin 13.8, Hematocrit 41.5 , Mean Corpuscular Volume 85, Mean Corpuscular Hemoglobin 28.1, Mean Corpuscular Hemoglobin Concent 33.2, Red Cell Distribution Width 13.5, Platelet Count 271, Mean Platelet Volume 4.9L, Neutrophils (%) (Auto) 84.8H, Lymphocytes (%) (Auto) 8.4L, Monocytes (%) (Auto) 4.6, Eosinophils (%) (Auto) 0.2, Basophils (%) (Auto) 2.0, Sodium Level 139, Potassium Level 4.3, Chloride Level 105, Carbon Dioxide Level 26, Anion Gap 8, Blood Urea Nitrogen 23H, Creatinine 0.8, Estimat Glomerular Filtration Rate > 60, Glucose Level 249H, Calcium Level 8.8, Total Bilirubin 0.2, Aspartate Amino Transf (AST/SGOT) 24, Alanine Aminotransferase (ALT/SGPT) 53, Alkaline Phosphatase 51, Pro-B-Type Natriuretic Peptide 96, Total Protein 6.2L, Albumin 2.3L, Globulin 3.9, Albumin/Globulin Ratio 0.6L Current Medications Medications (Trade) Dose Ordered Sig/Jaime Route PRN Reason Start Time Stop Time Status Last Admin Dose Admin Acetaminophen (Tylenol) 650 mg Q6H PRN ORAL For Headache 01/24/20 21:45 02/23/20 21:44 Albuterol Sulfate (Proventil MDI) 2 puff Q4H PRN INH Shortness of Breath 01/25/20 02:15 04/24/20 02:14 Amlodipine Besylate (Norvasc) 10 mg DAILY ORAL 01/25/20 09:00 02/24/20 08:59 01/30/20 09:21 Ascorbic Acid (Vitamin C) 500 mg TWICE A DAY ORAL 01/25/20 18:00 02/24/20 17:59 01/30/20 09:21 Aspirin (ASA) 81 mg DAILY ORAL 01/25/20 09:00 03/10/20 08:59 01/30/20 09:22 Dexamethasone Sodium Phosphate (Decadron 10mg/ ml Inj) 6 mg Q24H IV 01/27/20 00:00 02/03/20 00:01 01/30/20 00:22 Heparin Sodium (Porcine) (Heparin 5000 units/ml) 5,000 units EVERY 8 HOURS SUBQ 01/25/20 14:00 03/10/20 13:59 01/30/20 05:23 Pantoprazole (Protonix) 40 mg DAILY ORAL 01/25/20 09:00 02/24/20 08:59 01/30/20 09:21 Zinc Sulfate (Zinc Sulfate) 220 mg DAILY ORAL 01/26/20 09:00 04/25/20 08:59 01/30/20 09:21 Assessment/Plan Problems: (1) 2019 novel coronavirus disease (COVID-19) (2) History of asthma (3) Acute bronchitis Assessment/Plan wbc is high secondary to Decardrone CRP is almost normal, Doubt COVID pneumonia off abx -Decadron respiratory treatment titrate fio2 to sat of 92% f/u ID recommendations dvt prophylaxis Saqib Obando MD Jan 30, 2020 12:00
--- NOTE | 2020-01-30 15:18 | NUR ---
NURSE NOTES: Per Dr. Elias pt discharged with home meds and a prescription for 4 days of Decadron (signed prescription given to pt and copy placed in file) . IV and tele box removed. Items accounted and signed for. Discharge paperwork signed. Uzbek speaking nurse (Shira RN) explained to Pt that she should remain isolated for 2 weeks from the day she tested positive. Covid information along with pt education about symptoms given in discharge packet. Pt told to report to ED if she has persistent fevers, SOB, and/or cough. Per hospital policy, pt walked down with a mask via COVID elevator. Son (transport) also had masked, information re rx and isolation relayed to him as well. Dr. Elias provided card and pt told that she should follow up with either PCP or Dr. Elias. Pt confirmed understanding of information provided. Addendum: 01/30/20 at 1527 by Poly Stover RN ID band also removed and disposed in shred bin.
--- NOTE | 2020-01-30 15:26 | NUR ---
INSURANCE DC SUMMARY FAXED TO [facility] T:[phone] F: [phone] REF#[id number]
--- NOTE | 2020-01-30 16:45 | Diagnostic Imaging Report ---
Indication: Dyspnea Technique: One view of the chest Comparison: 01/29/2020 Findings: Peripheral interstitial and airspace opacities are unchanged. Normal heart size. Pleural spaces are clear. Impression: Unchanged, over one day, findings as above.
--- NOTE | 2020-01-30 16:45 | Diagnostic Imaging Report ---
Indication: Shortness of breath Technique: One view of the chest Comparison: 01/28/2020 Findings: Unchanged bilateral interstitial and airspace opacities. No new infiltrates. Normal heart size. Pleural spaces are clear. Impression: Unchanged, over one day, findings as above.
--- NOTE | 2020-01-30 21:51 | Internal Med Progress Note ---
Subjective Physician Name Leroy Elias Attending Physician Leroy Elias MD Allergies: Coded Allergies: No Known Allergies (Unverified , 01/24/20) Subjective alert, awake, responsive, no shortness of breath, less dry cough, feeling better , denies chest pain. IN [facility] Isolation room. Objective Last Vital Signs Date Time Temp Pulse Resp B/P (MAP) Pulse Ox O2 Delivery O2 Flow Rate FiO2 01/30/20 12:00 98.0 63 20 125/59 (81) 95 01/30/20 09:00 Room Air 01/26/20 21:00 2.0 Laboratory Tests Test 01/30/20 04:05 White Blood Count 13.7 K/UL (4.8-10.8) H Red Blood Count 4.91 M/UL (4.20-5.40) Hemoglobin 13.8 G/DL (12.0-16.0) Hematocrit 41.5 % (37.0-47.0) Mean Corpuscular Volume 85 FL (80-99) Mean Corpuscular Hemoglobin 28.1 PG (27.0-31.0) Mean Corpuscular Hemoglobin Concent 33.2 G/DL (32.0-36.0) Red Cell Distribution Width 13.5 % (11.6-14.8) Platelet Count 271 K/UL (150-450) Mean Platelet Volume 4.9 FL (6.5-10.1) L Neutrophils (%) (Auto) 84.8 % (45.0-75.0) H Lymphocytes (%) (Auto) 8.4 % (20.0-45.0) L Monocytes (%) (Auto) 4.6 % (1.0-10.0) Eosinophils (%) (Auto) 0.2 % (0.0-3.0) Basophils (%) (Auto) 2.0 % (0.0-2.0) Sodium Level 139 MMOL/L (136-145) Potassium Level 4.3 MMOL/L (3.5-5.1) Chloride Level 105 MMOL/L (98-107) Carbon Dioxide Level 26 MMOL/L (21-32) Anion Gap 8 mmol/L (5-15) Blood Urea Nitrogen 23 mg/dL (7-18) H Creatinine 0.8 MG/DL (0.55-1.30) Estimat Glomerular Filtration Rate > 60 mL/min (>60) Glucose Level 249 MG/DL (74-106) H Calcium Level 8.8 MG/DL (8.5-10.1) Total Bilirubin 0.2 MG/DL (0.2-1.0) Aspartate Amino Transf (AST/SGOT) 24 U/L (15-37) Alanine Aminotransferase (ALT/SGPT) 53 U/L (12-78) Alkaline Phosphatase 51 U/L (46-116) Pro-B-Type Natriuretic Peptide 96 pg/mL (0-125) Total Protein 6.2 G/DL (6.4-8.2) L Albumin 2.3 G/DL (3.4-5.0) L Globulin 3.9 g/dL Albumin/Globulin Ratio 0.6 (1.0-2.7) L Intake and Output 01/29/20 01/30/20 19:00 07:00 Intake Total 550 ml 525 ml Balance 550 ml 525 ml Intake Oral 550 ml 470 ml IV Total 55 ml # Voids 2 2 Objective General: No acute distress, awake and alert HEENT: NCAT, sclera anicteric, PERRL, EOMI. Neck: Supple, no significant jugular venous distention, Lungs: fair inspiratory effort, decreased air at the base no Wheeze or Rales. Heart: Regular rate and rhythm, normal S1/S2, no murmurs. Abdomen: soft, nontender, nondistended. Normoactive bowel sounds, morbid obesity. / Rectal: Refused and deferred. Extremities: No Cyanosis , clubbing or edema. Neuro: A&O x 3, Able to move all extremities Skin: warm, no rashes or lesions Psych: Normal mood and affect Assessment/Plan Assessment/Plan ASSESSMENT: This is a 74-year-old female. 1. COVID-19 positive. 2. Bilateral pneumonia. 3. Shortness of breath. 4. Acute Hypoxia respiratory failure. 5. Asthma. 6. Hypertension. 7. Gastritis. 8. Arthritis. TREATMENT: 1. COVID-19 pneumonia. An Infectious Disease consultation has been obtained with Dr. Lau. Patient has also been receiving albuterol nebulized q.4h. A Pulmonary consultation has been obtained with Dr. Saqib Obando. Follow recommendations of Infectious Disease and Pulmonary. 2. Hypertension. Continue amlodipine and benazepril as above. 3. Gastritis. Continue omeprazole as above. 4. Arthritis. Continue Ceftriaxone and Azithromycin #4/5 Decadron #4 Requested remdesevir- however was denied by [facility] COVID task force committee per current protocol Seems to be improving- on/off requiring O2- will continue to monitor DVT prophylaxis: Heparin SQ CODE STATUS: Full Code DC home today Leroy Elias MD Jan 30, 2020 21:51
== END 2020-01-30 15:26 | disposition home or self-care (01) | DRG 177 ==
LOC: 2E 19:52
DX: U07.1 COVID-19 (principal); J12.89 Other viral pneumonia; J96.01 Acute respiratory failure with hypoxia; I47.1 Supraventricular tachycardia; I10 Essential (primary) hypertension; K29.70 Gastritis, unspecified, without bleeding; M19.90 Unspecified osteoarthritis, unspecified site; R73.9 Hyperglycemia, unspecified; D72.829 Elevated white blood cell count, unspecified; J20.9 Acute bronchitis, unspecified
CPT/HCPCS: 36415; 36600; 71045; 80048; 80053; 81001; 82728; 82803; 83615; 83735; 83880; 84100; 84484; 85007; 85025; 85379; 85384; 85651; 86140; 86703; 87040; 87086; U0002